=== PATIENT | male | born 1965 | race Hispanic/Latino ===

== ENCOUNTER → 2020-01-08 | Day surgery (SDC) | payer MEDICARE ==
[2020-01-03 16:46] LABS: BASOPHILS % 0.3 % (0.0-1.0); EOSINOPHILS # (AUTO) 0.1 (0.0-0.4); EOSINOPHILS % 1.7 % (0.0-6.0); HEMATOCRIT 38.1 % (38.2-49.6); LYMPHOCYTES # (AUTO) 1.4 (1.0-3.2); LYMPHOCYTES % 40.9 % (18.0-39.1); MEAN CORPUSCULAR HEMOGLOBIN 32.6 pg (28-32); MEAN CORPUSCULAR HGB CONC 34.1 g/dL (31-35); MEAN CORPUSCULAR VOLUME 95.5 fL (81-99); MONOCYTES # (AUTO) 0.3 (0.2-0.8); MONOCYTES % 9.3 % (4.4-11.3); NEUTROPHILS # (AUTO) 1.7 (2.1-6.9); NEUTROPHILS % 47.8 % (38.7-80.0); RED BLOOD COUNT 3.99 x10e6/uL (4.3-5.7); RED CELL DISTRIBUTION WIDTH 13.9 % (11.7-14.4)
[2020-01-03 16:49] LABS: PLATELET COUNT 63 x10e3/uL (140-360)
[2020-01-03 16:53] LABS: INR 1.23; PARTIAL THROMBOPLASTIN TIME 33.9 seconds (23.8-35.5); PROTHROMBIN TIME 16.3 seconds (11.9-14.5)
[2020-01-03 17:05] LABS: ALANINE AMINOTRANSFERASE 47 IU/L (0-55); ALBUMIN 3.3 g/dL (3.5-5.0); ALBUMIN/GLOBULIN RATIO 1.1 (0.8-2.0); ALKALINE PHOSPHATASE 106 IU/L (40-150); ANION GAP 13.6 mmol/L (8-16); BLOOD UREA NITROGEN 13 mg/dL (7-26); BUN/CREATININE RATIO 14 (6-25); CARBON DIOXIDE 22 mmol/L (22-29); CHLORIDE 109 mmol/L (98-107); CREATININE, SERUM 0.95 mg/dL (0.72-1.25); EST GLOMERULAR FILTRATION RATE > 60 ML/MIN (60-); GLUCOSE 151 mg/dL (74-118); POTASSIUM 3.6 mmol/L (3.5-5.1); SODIUM 141 mmol/L (136-145)
[~2020-01-08] MED LIST: AIDE PO; CALCIUM CARBON500 MG PO; CINNAMON500 MG PO; FENTANYL CITRATE/PF 100MCG/2 ML INJ ONE; FISH OIL 1,0001 EAC2 PO; LACTULOSE20 GM/30 M PO; LIDOCAINE HCL 2% LOCAL INJ 5 ML SDV VIAL INJ ONE; MIDAZOLAM HCL 2 MG/2 ML VIAL ONE; MILK THISTLE140 M1 PO; ONE DAILY MULT1 EAC1 PO; POTASSIUM CHLO10 ME1 PO; PROPOFOL IV EMULSION 10 MG/ML 20 ML VIAL ONE; PROPRANOLOL HCL10 MG PO; VITAMIN D400 UNIT PO; VITAMIN E400 UNIT PO
--- OUTSIDE RECORDS SUMMARY | 2020-01-08 09:37 | XMS REPORT ---
[facility] Address Unknown Phone Unavailable Care Team Providers Care [employer] Name Role Phone Unavailable Unavailable Payers Payer Name Policy Type Policy Number Effective Date Expiration Date Problems This patient has no known problems. Allergies, Adverse Reactions, Alerts Allergy Name Allergy Type Status Severity Reaction(s) Onset Date Inactive Date Treating Clinician Comments iodine DA Active SV 2019-03-25 00:00:00 iodine DA Active U 2013-10-18 00:00:00 Medications This patient has no known medications. Encounters Start Date/Time End Date/Time Encounter Type Admission Type Attending Clinicians Care Facility Care Department Encounter ID 2018-08-28 00:00:00 2018-08-28 00:00:[address] [facility] [id number] 2018-08-08 00:00:00 2018-08-08 00:00:[address] [facility] [id number] 2018-08-07 00:00:00 2018-08-07 00:00:[address] [facility] [id number] 2018-08-06 00:00:00 2018-08-06 00:00:[address] [facility] [id number] 2018-07-12 11:55:13 2018-07-12 11:55:[address] [facility] [id number] 2018-07-12 10:49:02 2018-07-12 10:49:[address] [facility] [id number] 2018-07-02 10:58:16 2018-07-02 10:58:[address] [facility] [id number] 2018-06-01 00:00:00 2018-06-01 00:00:[address] [facility] [id number] 2018-05-25 10:51:18 2018-05-25 10:51:[address] [facility] [id number] 2018-05-08 15:22:50 2018-05-08 15:22:[address] [facility] [id number] 2018-03-02 11:04:57 2018-03-02 11:04:[address] [facility] [id number] 2018-03-02 09:17:30 2018-03-02 09:17:[address] [facility] [id number] 2018-02-27 08:42:21 2018-02-27 08:42:[address] [facility] [id number] 2018-02-13 13:10:19 2018-02-13 13:10:[address] [facility] [id number] 2018-01-23 00:00:00 2018-01-23 00:00:[address] [facility] [id number] 2018-01-22 08:19:54 2018-01-22 08:19:[address] [facility] [id number] 2018-01-19 10:16:58 2018-01-19 10:16:[address] [facility] [id number] 2018-01-12 13:48:51 2018-01-12 13:48:[address] [facility] [id number] 2018-01-01 10:23:17 2018-01-01 10:23:[address] [facility] [id number] 2018-01-01 09:28:31 2018-01-01 09:28:[address] [facility] [id number] 2017-12-12 00:00:00 2017-12-12 00:00:[address] [facility] [id number] 2017-12-07 10:57:59 2017-12-07 10:57:[address] [facility] [id number] 2017-12-01 00:00:00 2017-12-01 00:00:[address] [facility] [id number] 2017-11-03 11:35:42 2017-11-03 11:35:[address] [facility] [id number] 2017-11-03 10:49:07 2017-11-03 10:49:[address] [facility] [id number] 2017-11-03 09:53:55 2017-11-03 09:53:[address] [facility] [id number] 2017-11-02 00:00:00 2017-11-02 00:00:[address] [facility] [id number] 2017-10-24 08:12:06 2017-10-24 08:12:[address] [facility] [id number] 2017-10-23 13:52:26 2017-10-23 13:52:[address] [facility] [id number] 2017-10-12 00:00:00 2017-10-12 00:00:[address] [facility] [id number] 2017-10-12 00:00:00 2017-10-12 00:00:[address] [facility] [id number] 2017-10-09 10:40:29 2017-10-09 10:40:[address] [facility] [id number] 2017-10-09 10:34:50 2017-10-09 10:34:[address] [facility] [id number] 2017-10-05 11:12:08 2017-10-05 11:12:08 Emergency [facility] [id number] 2017-10-05 08:32:46 2017-10-05 08:32:[address] [facility] [id number] 2017-10-05 08:32:36 2017-10-05 08:32:[address] [facility] [id number] 2017-10-04 10:04:54 2017-10-04 10:04:[address] [facility] [id number] 2017-10-04 08:02:58 2017-10-04 08:02:[address] [facility] [id number] 2017-10-01 00:00:00 2017-10-01 00:00:[address] [facility] [id number] 2017-09-27 22:04:01 2017-09-27 22:04:[address] [facility] [id number] 2017-09-27 20:53:33 2017-09-27 20:53:33 Emergency [facility] [id number] 2017-09-27 06:10:52 2017-09-27 06:10:[address] [facility] [id number] 2017-09-26 13:07:34 2017-09-26 13:07:[address] [facility] [id number] 2017-09-20 09:01:39 2017-09-20 09:01:39 Outpatient [facility] [id number] 2017-09-19 00:00:00 2017-09-19 00:00:[address] [facility] [id number] 2017-09-18 00:00:00 2017-09-18 00:00:[address] [facility] [id number] 2017-09-15 10:02:19 2017-09-15 10:02:[address] [facility] [id number] 2017-09-15 09:50:46 2017-09-15 09:50:[address] [facility] [id number] 2017-09-15 08:12:14 2017-09-15 08:12:[address] [facility] [id number] 2017-09-15 00:00:00 2017-09-15 00:00:[address] [facility] [id number] 2017-09-15 00:00:00 2017-09-15 00:00:[address] [facility] [id number] 2017-09-11 15:06:38 2017-09-11 15:06:38 Outpatient [facility] [id number] 2017-09-11 09:01:23 2017-09-11 09:01:[address] [facility] [id number] 2017-09-06 00:00:00 2017-09-06 00:00:[address] [facility] [id number] 2017-09-06 00:00:00 2017-09-06 00:00:[address] [facility] [id number] 2017-09-05 11:43:26 2017-09-05 11:43:26 Outpatient [facility] [id number] 2017-09-05 11:41:42 2017-09-05 11:41:42 Outpatient [facility] [id number] 2017-09-05 00:00:00 2017-09-05 00:00:[address] [facility] [id number] 2017-09-04 10:15:57 2017-09-04 10:15:57 Outpatient [facility] [id number] 2017-09-04 10:02:44 2017-09-04 10:02:44 Outpatient [facility] [id number] 2017-09-04 08:21:20 2017-09-04 08:21:20 Outpatient [facility] [id number] 2017-09-04 00:00:00 2017-09-04 00:00:00 Outpatient [facility] [id number] 2017-09-04 00:00:00 2017-09-04 00:00:00 Outpatient [facility] [id number] 2017-09-04 00:00:00 2017-09-04 00:00:00 Outpatient [facility] [id number] 2017-08-31 19:44:09 2017-08-31 19:44:09 Emergency [facility] [id number] 2017-08-25 00:00:00 2017-08-25 00:00:[address] [facility] [id number] 2017-08-22 00:00:00 2017-08-22 00:00:[address] [facility] [id number] 2017-08-04 10:20:16 2017-08-04 10:20:[address] [facility] [id number] 2017-08-04 10:04:06 2017-08-04 10:04:[address] [facility] [id number] 2017-08-01 10:39:41 2017-08-01 10:39:[address] [facility] [id number] 2017-08-01 00:00:00 2017-08-01 00:00:[address] [facility] [id number] 2017-07-27 00:00:00 2017-07-27 00:00:[address] [facility] [id number] 2017-07-19 08:42:40 2017-07-19 08:42:[address] [facility] [id number] 2017-07-18 13:01:27 2017-07-18 13:01:[address] [facility] [id number] 2017-07-14 08:58:50 2017-07-14 08:58:[address] [facility] [id number] 2017-07-14 08:34:30 2017-07-14 08:34:[address] [facility] [id number] 2017-07-11 00:00:00 2017-07-11 00:00:[address] [facility] [id number] 2017-07-04 09:29:53 2017-07-04 09:29:[address] [facility] [id number] 2017-07-03 15:06:53 2017-07-03 15:06:[address] [facility] [id number] 2017-06-19 11:24:33 2017-06-19 11:24:[address] [facility] [id number] 2017-06-19 10:32:06 2017-06-19 10:32:[address] [facility] [id number] 2017-06-14 09:08:30 2017-06-14 09:08:[address] [facility] [id number] 2017-06-05 09:32:25 2017-06-05 09:32:[address] [facility] [id number] 2017-05-22 15:05:47 2017-05-22 15:05:[address] [facility] [id number] 2017-05-16 09:40:38 2017-05-16 09:40:[address] [facility] [id number] 2017-05-09 00:00:00 2017-05-09 00:00:[address] [facility] [id number] 2017-05-08 00:00:00 2017-05-08 00:00:[address] [facility] [id number] 2017-04-18 16:20:04 2017-04-18 16:20:[address] [facility] [id number] 2017-04-18 14:23:09 2017-04-18 14:23:[address] [facility] [id number] 2017-04-12 00:00:00 2017-04-12 00:00:[address] [facility] [id number] 2017-04-11 09:15:39 2017-04-11 09:15:[address] [facility] [id number] 2017-03-29 21:54:28 2017-03-29 21:54:[address] [facility] [id number] 2017-02-20 14:41:20 2017-02-20 14:41:[address] [facility] [id number] 2016-09-08 10:29:34 2016-09-08 10:29:[address] [facility] [id number] Results Test Description Test Time Test Comments Text Results Atomic Results Result Comments CBC W/AUTO DIFF 2019-03-31 10:08:00 WHITE BLOOD CELL (test code=WBC) 3.6 K/mm3 4.5-12.5 RED BLOOD CELL (test code=RBC) 3.22 mill/mm3 4.0-5.8 HEMOGLOBIN (test code=HGB) 10.5 gram/dL 13.0-17.5 HEMATOCRIT (test code=HCT) 31.8 % 42.0-52.0 MEAN CELL VOLUME (test code=MCV) 98.8 fL 80-98 MEAN CELL HGB (test code=MCH) 32.6 picogram 27.0-33.0 MEAN CELL HGB CONCETRATION (test code=MCHC) 33.0 gram/dL 33.0-36.0 RED CELL DISTRIBUTION WIDTH (test code=RDW) 13.0 % 11.6-16.2 RED CELL DISTRIBUTION WIDTH SD (test code=RDW-SD) 47.0 fL 37.0-51.0 PLATELET COUNT (test code=PLT) 44 K/mm3 150-450 Results called to [id number] by LORAINE 03/31/19 0710Critical results verified and read back by Nurse? Y MEAN PLATELET VOLUME (test code=MPV) 11.7 fL 6.7-11.0 NEUTROPHIL % (test code=NT%) 51.2 % 39.0-69.0 IMMATURE GRANULOCYTE % (test code=IG%) 0.6 % 0.0-5.0 LYMPHOCYTE % (test code=LY%) 32.8 % 25.0-55.0 MONOCYTE % (test code=MO%) 13.2 % 0.0-10.0 EOSINOPHIL % (test code=EO%) 1.9 % 0.0-5.0 BASOPHIL % (test code=BA%) 0.3 % 0.0-1.0 NUCLEATED RBC % (test code=NRBC%) 0.0 % 0-0 NEUTROPHIL # (test code=NT#) 1.86 K/mm3 1.8-7.7 IMMATURE GRANULOCYTE # (test code=IG#) 0.02 x10 3/uL 0-0.03 LYMPHOCYTE # (test code=LY#) 1.19 K/mm3 1.0-5.0 MONOCYTE # (test code=MO#) 0.48 K/mm3 0-0.8 EOSINOPHIL # (test code=EO#) 0.07 K/mm3 0.0-0.5 BASOPHIL # (test code=BA#) 0.01 K/mm3 0.0-0.2 NUCLEATED RBC # (test code=NRBC#) 0.00 K/mm3 0.0-0.1 MANUAL DIFF REQUIRED (test code=MDIFF) NO, ONLY SCAN NEEDED DIFFERENTIAL [id number] 10:08:00* Test Item Value Reference Range Comments STAIN ACCEPTABILITY (test code=STN ACCEPTABLE) STAIN ACCEPTABLE POLYCHROMASIA (test code=POLC) 1+ POIKILOCYTOSIS (test code=POIK) 1+ ANISOCYTOSIS (test code=ANISO) 2+ MACROCYTOSIS (test code=MACR) 1+ SMUDGE CELLS (test code=SMUDG) 2+ PLATELET ESTIMATE (test code=PLTEST) DECREASED PLATELET MORPHOLOGY (test code=PLTMORPH) NORMAL CBC W/AUTO [id number] 07:11:00* Test Item Value Reference Range Comments WHITE BLOOD CELL (test code=WBC) 3.6 K/mm3 4.5-12.5 RED BLOOD CELL (test code=RBC) 3.22 mill/mm3 4.0-5.8 HEMOGLOBIN (test code=HGB) 10.5 gram/dL 13.0-17.5 HEMATOCRIT (test code=HCT) 31.8 % 42.0-52.0 MEAN CELL VOLUME (test code=MCV) 98.8 fL 80-98 MEAN CELL HGB (test code=MCH) 32.6 picogram 27.0-33.0 MEAN CELL HGB CONCETRATION (test code=MCHC) 33.0 gram/dL 33.0-36.0 RED CELL DISTRIBUTION WIDTH (test code=RDW) 13.0 % 11.6-16.2 RED CELL DISTRIBUTION WIDTH SD (test code=RDW-SD) 47.0 fL 37.0-51.0 PLATELET COUNT (test code=PLT) 44 K/mm3 150-450 Results called to [id number] by V.[email or web address] 03/31/19 0710Critical results verified and read back by Nurse? Y MEAN PLATELET VOLUME (test code=MPV) 11.7 fL 6.7-11.0 NEUTROPHIL % (test code=NT%) 51.2 % 39.0-69.0 IMMATURE GRANULOCYTE % (test code=IG%) 0.6 % 0.0-5.0 LYMPHOCYTE % (test code=LY%) 32.8 % 25.0-55.0 MONOCYTE % (test code=MO%) 13.2 % 0.0-10.0 EOSINOPHIL % (test code=EO%) 1.9 % 0.0-5.0 BASOPHIL % (test code=BA%) 0.3 % 0.0-1.0 NUCLEATED RBC % (test code=NRBC%) 0.0 % 0-0 NEUTROPHIL # (test code=NT#) 1.86 K/mm3 1.8-7.7 IMMATURE GRANULOCYTE # (test code=IG#) 0.02 x10 3/uL 0-0.03 LYMPHOCYTE # (test code=LY#) 1.19 K/mm3 1.0-5.0 MONOCYTE # (test code=MO#) 0.48 K/mm3 0-0.8 EOSINOPHIL # (test code=EO#) 0.07 K/mm3 0.0-0.5 BASOPHIL # (test code=BA#) 0.01 K/mm3 0.0-0.2 NUCLEATED RBC # (test code=NRBC#) 0.00 K/mm3 0.0-0.1 MANUAL DIFF REQUIRED (test code=MDIFF) NO, ONLY SCAN NEEDED DIFFERENTIAL [id number] 07:11:00* Test Item Value Reference Range Comments STAIN ACCEPTABILITY (test code=STN ACCEPTABLE) CABOT RINGS (test code=CAB) MORPHOLOGY COMMENT (test code=MOC) PLATELET ESTIMATE (test code=PLTEST) PLATELET MORPHOLOGY (test code=PLTMORPH) CBC W/AUTO [id number] 07:11:00* Test Item Value Reference Range Comments WHITE BLOOD CELL (test code=WBC) 3.6 K/mm3 4.5-12.5 RED BLOOD CELL (test code=RBC) 3.22 mill/mm3 4.0-5.8 HEMOGLOBIN (test code=HGB) 10.5 gram/dL 13.0-17.5 HEMATOCRIT (test code=HCT) 31.8 % 42.0-52.0 MEAN CELL VOLUME (test code=MCV) 98.8 fL 80-98 MEAN CELL HGB (test code=MCH) 32.6 picogram 27.0-33.0 MEAN CELL HGB CONCETRATION (test code=MCHC) 33.0 gram/dL 33.0-36.0 RED CELL DISTRIBUTION WIDTH (test code=RDW) 13.0 % 11.6-16.2 RED CELL DISTRIBUTION WIDTH SD (test code=RDW-SD) 47.0 fL 37.0-51.0 PLATELET COUNT (test code=PLT) 44 K/mm3 150-450 Results called to [id number] by LORAINE 03/31/19 0710Critical results verified and read back by Nurse? Y MEAN PLATELET VOLUME (test code=MPV) 11.7 fL 6.7-11.0 NEUTROPHIL % (test code=NT%) 51.2 % 39.0-69.0 IMMATURE GRANULOCYTE % (test code=IG%) 0.6 % 0.0-5.0 LYMPHOCYTE % (test code=LY%) 32.8 % 25.0-55.0 MONOCYTE % (test code=MO%) 13.2 % 0.0-10.0 EOSINOPHIL % (test code=EO%) 1.9 % 0.0-5.0 BASOPHIL % (test code=BA%) 0.3 % 0.0-1.0 NUCLEATED RBC % (test code=NRBC%) 0.0 % 0-0 NEUTROPHIL # (test code=NT#) 1.86 K/mm3 1.8-7.7 IMMATURE GRANULOCYTE # (test code=IG#) 0.02 x10 3/uL 0-0.03 LYMPHOCYTE # (test code=LY#) 1.19 K/mm3 1.0-5.0 MONOCYTE # (test code=MO#) 0.48 K/mm3 0-0.8 EOSINOPHIL # (test code=EO#) 0.07 K/mm3 0.0-0.5 BASOPHIL # (test code=BA#) 0.01 K/mm3 0.0-0.2 NUCLEATED RBC # (test code=NRBC#) 0.00 K/mm3 0.0-0.1 MANUAL DIFF REQUIRED (test code=MDIFF) NO, ONLY SCAN NEEDED DIFFERENTIAL [id number] 07:11:00* Test Item Value Reference Range Comments STAIN ACCEPTABILITY (test code=STN ACCEPTABLE) CABOT RINGS (test code=CAB) MORPHOLOGY COMMENT (test code=MOC) PLATELET ESTIMATE (test code=PLTEST) PLATELET MORPHOLOGY (test code=PLTMORPH) CBC W/AUTO [id number] 07:11:00* Test Item Value Reference Range Comments WHITE BLOOD CELL (test code=WBC) 3.6 K/mm3 4.5-12.5 RED BLOOD CELL (test code=RBC) 3.22 mill/mm3 4.0-5.8 HEMOGLOBIN (test code=HGB) 10.5 gram/dL 13.0-17.5 HEMATOCRIT (test code=HCT) 31.8 % 42.0-52.0 MEAN CELL VOLUME (test code=MCV) 98.8 fL 80-98 MEAN CELL HGB (test code=MCH) 32.6 picogram 27.0-33.0 MEAN CELL HGB CONCETRATION (test code=MCHC) 33.0 gram/dL 33.0-36.0 RED CELL DISTRIBUTION WIDTH (test code=RDW) 13.0 % 11.6-16.2 RED CELL DISTRIBUTION WIDTH SD (test code=RDW-SD) 47.0 fL 37.0-51.0 PLATELET COUNT (test code=PLT) 44 K/mm3 150-450 Results called to [id number] by V.[email or web address] 03/31/19 0710Critical results verified and read back by Nurse? Y MEAN PLATELET VOLUME (test code=MPV) 11.7 fL 6.7-11.0 NEUTROPHIL % (test code=NT%) 51.2 % 39.0-69.0 IMMATURE GRANULOCYTE % (test code=IG%) 0.6 % 0.0-5.0 LYMPHOCYTE % (test code=LY%) 32.8 % 25.0-55.0 MONOCYTE % (test code=MO%) 13.2 % 0.0-10.0 EOSINOPHIL % (test code=EO%) 1.9 % 0.0-5.0 BASOPHIL % (test code=BA%) 0.3 % 0.0-1.0 NUCLEATED RBC % (test code=NRBC%) 0.0 % 0-0 NEUTROPHIL # (test code=NT#) 1.86 K/mm3 1.8-7.7 IMMATURE GRANULOCYTE # (test code=IG#) 0.02 x10 3/uL 0-0.03 LYMPHOCYTE # (test code=LY#) 1.19 K/mm3 1.0-5.0 MONOCYTE # (test code=MO#) 0.48 K/mm3 0-0.8 EOSINOPHIL # (test code=EO#) 0.07 K/mm3 0.0-0.5 BASOPHIL # (test code=BA#) 0.01 K/mm3 0.0-0.2 NUCLEATED RBC # (test code=NRBC#) 0.00 K/mm3 0.0-0.1 MANUAL DIFF REQUIRED (test code=MDIFF) NO, ONLY SCAN NEEDED DIFFERENTIAL [id number] 07:11:00* Test Item Value Reference Range Comments STAIN ACCEPTABILITY (test code=STN ACCEPTABLE) MORPHOLOGY COMMENT (test code=MOC) PLATELET ESTIMATE (test code=PLTEST) PLATELET MORPHOLOGY (test code=PLTMORPH) CBC W/AUTO [id number] 07:11:00* Test Item Value Reference Range Comments WHITE BLOOD CELL (test code=WBC) 3.6 K/mm3 4.5-12.5 RED BLOOD CELL (test code=RBC) 3.22 mill/mm3 4.0-5.8 HEMOGLOBIN (test code=HGB) 10.5 gram/dL 13.0-17.5 HEMATOCRIT (test code=HCT) 31.8 % 42.0-52.0 MEAN CELL VOLUME (test code=MCV) 98.8 fL 80-98 MEAN CELL HGB (test code=MCH) 32.6 picogram 27.0-33.0 MEAN CELL HGB CONCETRATION (test code=MCHC) 33.0 gram/dL 33.0-36.0 RED CELL DISTRIBUTION WIDTH (test code=RDW) 13.0 % 11.6-16.2 RED CELL DISTRIBUTION WIDTH SD (test code=RDW-SD) 47.0 fL 37.0-51.0 PLATELET COUNT (test code=PLT) 44 K/mm3 150-450 Results called to [id number] by LORAINE 03/31/19 0710Critical results verified and read back by Nurse? Y MEAN PLATELET VOLUME (test code=MPV) 11.7 fL 6.7-11.0 NEUTROPHIL % (test code=NT%) 51.2 % 39.0-69.0 IMMATURE GRANULOCYTE % (test code=IG%) 0.6 % 0.0-5.0 LYMPHOCYTE % (test code=LY%) 32.8 % 25.0-55.0 MONOCYTE % (test code=MO%) 13.2 % 0.0-10.0 EOSINOPHIL % (test code=EO%) 1.9 % 0.0-5.0 BASOPHIL % (test code=BA%) 0.3 % 0.0-1.0 NUCLEATED RBC % (test code=NRBC%) 0.0 % 0-0 NEUTROPHIL # (test code=NT#) 1.86 K/mm3 1.8-7.7 IMMATURE GRANULOCYTE # (test code=IG#) 0.02 x10 3/uL 0-0.03 LYMPHOCYTE # (test code=LY#) 1.19 K/mm3 1.0-5.0 MONOCYTE # (test code=MO#) 0.48 K/mm3 0-0.8 EOSINOPHIL # (test code=EO#) 0.07 K/mm3 0.0-0.5 BASOPHIL # (test code=BA#) 0.01 K/mm3 0.0-0.2 NUCLEATED RBC # (test code=NRBC#) 0.00 K/mm3 0.0-0.1 MANUAL DIFF REQUIRED (test code=MDIFF) NO, ONLY SCAN NEEDED DIFFERENTIAL [id number] 07:11:00* Test Item Value Reference Range Comments STAIN ACCEPTABILITY (test code=STN ACCEPTABLE) CABOT RINGS (test code=CAB) MORPHOLOGY COMMENT (test code=MOC) PLATELET ESTIMATE (test code=PLTEST) PLATELET MORPHOLOGY (test code=PLTMORPH) BASIC METABOLIC [id number] 06:59:00* Test Item Value Reference Range Comments SODIUM (test code=NA) 140 mmol/L 136-145 POTASSIUM (test code=K) 3.5 mmol/L 3.5-5.1 CHLORIDE (test code=CL) 110.0 mmol/L 98-107 CARBON DIOXIDE (test code=CO2) 22.0 mmol/L 21-32 ANION GAP (test code=GAP) 11.5 10-20 GLUCOSE (test code=GLU) 96 mg/dL 74-106 BLOOD UREA NITROGEN (test code=BUN) 13 mg/dL 7-18 GLOMERULAR FILTRATION RATE (test code=GFR) > 60 mL/min >=60 Estimated GFR by using Modified MDRD formula.Chronic kidney disease is defined as either kidney damageor GFR <60 mL/min/1.73 m2 for >3 months. CREATININE (test code=CREAT) 0.70 mg/dL 0.7-1.3 BUN/CREATININE RATIO (test code=BUN/CREA) 18.6 10-20 CALCIUM (test code=CA) 7.9 mg/dL 8.5-10.1 BASIC METABOLIC [id number] 06:53:00* Test Item Value Reference Range Comments SODIUM (test code=NA) 140 mmol/L 136-145 POTASSIUM (test code=K) 3.5 mmol/L 3.5-5.1 CHLORIDE (test code=CL) 110.0 mmol/L 98-107 CARBON DIOXIDE (test code=CO2) mmol/L 21-32 ANION GAP (test code=GAP) 10-20 GLUCOSE (test code=GLU) mg/dL 74-106 BLOOD UREA NITROGEN (test code=BUN) mg/dL 7-18 GLOMERULAR FILTRATION RATE (test code=GFR) mL/min >=60 CREATININE (test code=CREAT) mg/dL 0.7-1.3 BUN/CREATININE RATIO (test code=BUN/CREA) 10-20 CALCIUM (test code=CA) mg/dL 8.5-10.1 - XR CHEST 1 [id number] 10:32:00 FAX: Carol Estes MD [phone] [place]: St: ADM FAX: George Avila MD [phone] FAX: Aristides Ingram III [phone] Name: CAROL OLMEDO [facility] : 1965 Age/S: 53/M [address] [facility] Unit #: [id number] Loc: V.S06 [place] [address] Phys: George Schultz MD Acct: [id number] Dis Date: Status: ADM IN ONE #: [phone] Exam Date: 03/30/2019 044 FAX #: [phone] Reason: screening, anemia EXAMS: CPT CODE: [id number] XR CHEST 1 V [id number] EXAM: Chest x- ray, one view; INFORMATION: Anemia; respiratory distress; IMPRESSION: 1. Interim extubation. 2. Improvement compared with recent study from March 28, 2019: Both lungs are better aerat ed with almost complete resolution of previously seen infiltrative dewey es. 3. The heart size is within normal limits. at 1032 Reported and signed by: Ricky Anaya M.D. CC: Carol Tijerina MD; George Self MD; Aristides Preciado III, MD Technologist: CAS MITTAL, RT(R); Michela Roger Trnscrd Date/Time/By: 03/30/2019 (1032) : By: SterlingGR W Orig Print D/T: S: 03/30/2019 (2303) PAGE 1 Signed Report COMPREHENSIVE METABOLIC [id number] 07:34:00* Test Item Value Reference Range Comments SODIUM (test code=NA) 142 mmol/L 136-145 POTASSIUM (test code=K) 3.6 mmol/L 3.5-5.1 CHLORIDE (test code=CL) 111.0 mmol/L 98-107 CARBON DIOXIDE (test code=CO2) 24.0 mmol/L 21-32 ANION GAP (test code=GAP) 10.6 10-20 GLUCOSE (test code=GLU) 86 mg/dL 74-106 BLOOD UREA NITROGEN (test code=BUN) 17 mg/dL 7-18 GLOMERULAR FILTRATION RATE (test code=GFR) > 60 mL/min >=60 Estimated GFR by using Modified MDRD formula.Chronic kidney disease is defined as either kidney damageor GFR <60 mL/min/1.73 m2 for >3 months. CREATININE (test code=CREAT) 0.60 mg/dL 0.7-1.3 BUN/CREATININE RATIO (test code=BUN/CREA) 28.3 10-20 TOTAL PROTEIN (test code=PROT) 5.2 gram/dL 6.4-8.2 ALBUMIN (test code=ALB) 2.6 g/dL 3.4-5.0 GLOBULIN (test code=GLOB) 2.6 gram/dL 2.7-4.2 ALBUMIN/GLOBULIN RATIO (test code=A/G) 1.0 0.75-1.50 CALCIUM (test code=CA) 8.2 mg/dL 8.5-10.1 BILIRUBIN TOTAL (test code=BILT) 2.10 mg/dL 0.0-1.0 SGOT/AST (test code=AST) 47 IUnit/L 15-37 SGPT/ALT (test code=ALT) 37 IUnit/L 12-78 ALKALINE PHOSPHATASE TOTAL (test code=ALKP) 55 IUnit/L 45-117 Note change in reference range due to change in reagent. [id number] 07:34:00* Test Item Value Reference Range Comments MAGNESIUM (test code=MAG) 2.0 mg/dL 1.8-2.4 CBC W/O [id number] 07:23:00* Test Item Value Reference Range Comments WHITE BLOOD CELL (test code=WBC) 3.5 K/mm3 4.5-12.5 RED BLOOD CELL (test code=RBC) 3.07 mill/mm3 4.0-5.8 HEMOGLOBIN (test code=HGB) 10.6 gram/dL 13.0-17.5 HEMATOCRIT (test code=HCT) 30.5 % 42.0-52.0 MEAN CELL VOLUME (test code=MCV) 99.3 fL 80-98 MEAN CELL HGB (test code=MCH) 34.5 picogram 27.0-33.0 MEAN CELL HGB CONCETRATION (test code=MCHC) 34.8 gram/dL 33.0-36.0 RED CELL DISTRIBUTION WIDTH (test code=RDW) 13.3 % 11.6-16.2 PLATELET COUNT (test code=PLT) 34 K/mm3 150-450 Results called to [id number] by V.JOSE D 03/30/19 0723Critical results verified and read back by Nurse? Y MEAN PLATELET VOLUME (test code=MPV) 11.4 fL 6.7-11.0 COMPREHENSIVE METABOLIC [id number] 07:22:00* Test Item Value Reference Range Comments SODIUM (test code=NA) 142 mmol/L 136-145 POTASSIUM (test code=K) 3.6 mmol/L 3.5-5.1 CHLORIDE (test code=CL) 111.0 mmol/L 98-107 CARBON DIOXIDE (test code=CO2) mmol/L 21-32 ANION GAP (test code=GAP) 10-20 GLUCOSE (test code=GLU) mg/dL 74-106 BLOOD UREA NITROGEN (test code=BUN) mg/dL 7-18 GLOMERULAR FILTRATION RATE (test code=GFR) mL/min >=60 CREATININE (test code=CREAT) mg/dL 0.7-1.3 BUN/CREATININE RATIO (test code=BUN/CREA) 10-20 TOTAL PROTEIN (test code=PROT) gram/dL 6.4-8.2 ALBUMIN (test code=ALB) g/dL 3.4-5.0 GLOBULIN (test code=GLOB) gram/dL 2.7-4.2 ALBUMIN/GLOBULIN RATIO (test code=A/G) 0.75-1.50 CALCIUM (test code=CA) mg/dL 8.5-10.1 BILIRUBIN TOTAL (test code=BILT) mg/dL 0.0-1.0 SGOT/AST (test code=AST) IUnit/L 15-37 SGPT/ALT (test code=ALT) IUnit/L 12-78 ALKALINE PHOSPHATASE TOTAL (test code=ALKP) IUnit/L 45-117 [id number] 07:22:00* Test Item Value Reference Range Comments MAGNESIUM (test code=MAG) mg/dL 1.8-2.4 COMPREHENSIVE METABOLIC [id number] 05:51:00* Test Item Value Reference Range Comments SODIUM (test code=NA) 144 mmol/L 136-145 POTASSIUM (test code=K) 3.7 mmol/L 3.5-5.1 CHLORIDE (test code=CL) 113.0 mmol/L 98-107 CARBON DIOXIDE (test code=CO2) 25.0 mmol/L 21-32 ANION GAP (test code=GAP) 9.7 10-20 GLUCOSE (test code=GLU) 97 mg/dL 74-106 BLOOD UREA NITROGEN (test code=BUN) 18 mg/dL 7-18 GLOMERULAR FILTRATION RATE (test code=GFR) > 60 mL/min >=60 Estimated GFR by using Modified MDRD formula.Chronic kidney disease is defined as either kidney damageor GFR <60 mL/min/1.73 m2 for >3 months. CREATININE (test code=CREAT) 0.70 mg/dL 0.7-1.3 BUN/CREATININE RATIO (test code=BUN/CREA) 25.7 10-20 TOTAL PROTEIN (test code=PROT) 5.2 gram/dL 6.4-8.2 ALBUMIN (test code=ALB) 2.6 g/dL 3.4-5.0 GLOBULIN (test code=GLOB) 2.6 gram/dL 2.7-4.2 ALBUMIN/GLOBULIN RATIO (test code=A/G) 1.0 0.75-1.50 CALCIUM (test code=CA) 7.9 mg/dL 8.5-10.1 BILIRUBIN TOTAL (test code=BILT) 1.70 mg/dL 0.0-1.0 SGOT/AST (test code=AST) 52 IUnit/L 15-37 SGPT/ALT (test code=ALT) 34 IUnit/L 12-78 ALKALINE PHOSPHATASE TOTAL (test code=ALKP) 55 IUnit/L 45-117 Note change in reference range due to change in reagent. COMPREHENSIVE METABOLIC [id number] 05:41:00* Test Item Value Reference Range Comments SODIUM (test code=NA) 144 mmol/L 136-145 POTASSIUM (test code=K) 3.7 mmol/L 3.5-5.1 CHLORIDE (test code=CL) 113.0 mmol/L 98-107 CARBON DIOXIDE (test code=CO2) mmol/L 21-32 ANION GAP (test code=GAP) 10-20 GLUCOSE (test code=GLU) mg/dL 74-106 BLOOD UREA NITROGEN (test code=BUN) mg/dL 7-18 GLOMERULAR FILTRATION RATE (test code=GFR) mL/min >=60 CREATININE (test code=CREAT) mg/dL 0.7-1.3 BUN/CREATININE RATIO (test code=BUN/CREA) 10-20 TOTAL PROTEIN (test code=PROT) gram/dL 6.4-8.2 ALBUMIN (test code=ALB) g/dL 3.4-5.0 GLOBULIN (test code=GLOB) gram/dL 2.7-4.2 ALBUMIN/GLOBULIN RATIO (test code=A/G) 0.75-1.50 CALCIUM (test code=CA) mg/dL 8.5-10.1 BILIRUBIN TOTAL (test code=BILT) mg/dL 0.0-1.0 SGOT/AST (test code=AST) IUnit/L 15-37 SGPT/ALT (test code=ALT) IUnit/L 12-78 ALKALINE PHOSPHATASE TOTAL (test code=ALKP) IUnit/L 45-117 [id number] 05:41:00* Test Item Value Reference Range Comments AMMONIA (test code=AMM) 80 umol/L 11-32 CBC W/AUTO [id number] 05:04:00* Test Item Value Reference Range Comments WHITE BLOOD CELL (test code=WBC) 5.4 K/mm3 4.5-12.5 RED BLOOD CELL (test code=RBC) 3.06 mill/mm3 4.0-5.8 HEMOGLOBIN (test code=HGB) 10.2 gram/dL 13.0-17.5 HEMATOCRIT (test code=HCT) 30.7 % 42.0-52.0 MEAN CELL VOLUME (test code=MCV) 100.3 fL 80-98 MEAN CELL HGB (test code=MCH) 33.3 picogram 27.0-33.0 MEAN CELL HGB CONCETRATION (test code=MCHC) 33.2 gram/dL 33.0-36.0 RED CELL DISTRIBUTION WIDTH (test code=RDW) 13.5 % 11.6-16.2 RED CELL DISTRIBUTION WIDTH SD (test code=RDW-SD) 50.3 fL 37.0-51.0 PLATELET COUNT (test code=PLT) 41 K/mm3 150-450 Results called to [place] [address] by MARIEJP1 03/29/19 0502Critical results verified and read back by Nurse? Y MEAN PLATELET VOLUME (test code=MPV) 10.7 fL 6.7-11.0 NEUTROPHIL % (test code=NT%) 57.4 % 39.0-69.0 IMMATURE GRANULOCYTE % (test code=IG%) 0.2 % 0.0-5.0 LYMPHOCYTE % (test code=LY%) 28.8 % 25.0-55.0 MONOCYTE % (test code=MO%) 13.2 % 0.0-10.0 EOSINOPHIL % (test code=EO%) 0.2 % 0.0-5.0 BASOPHIL % (test code=BA%) 0.2 % 0.0-1.0 NUCLEATED RBC % (test code=NRBC%) 0.0 % 0-0 NEUTROPHIL # (test code=NT#) 3.10 K/mm3 1.8-7.7 IMMATURE GRANULOCYTE # (test code=IG#) 0.01 x10 3/uL 0-0.03 LYMPHOCYTE # (test code=LY#) 1.55 K/mm3 1.0-5.0 MONOCYTE # (test code=MO#) 0.71 K/mm3 0-0.8 EOSINOPHIL # (test code=EO#) 0.01 K/mm3 0.0-0.5 BASOPHIL # (test code=BA#) 0.01 K/mm3 0.0-0.2 NUCLEATED RBC # (test code=NRBC#) 0.00 K/mm3 0.0-0.1 COMPREHENSIVE METABOLIC [id number] 07:24:00* Test Item Value Reference Range Comments SODIUM (test code=NA) 143 mmol/L 136-145 POTASSIUM (test code=K) 3.9 mmol/L 3.5-5.1 CHLORIDE (test code=CL) 113.0 mmol/L 98-107 CARBON DIOXIDE (test code=CO2) 22.0 mmol/L 21-32 ANION GAP (test code=GAP) 11.9 10-20 GLUCOSE (test code=GLU) 126 mg/dL 74-106 BLOOD UREA NITROGEN (test code=BUN) 18 mg/dL 7-18 GLOMERULAR FILTRATION RATE (test code=GFR) > 60 mL/min >=60 Estimated GFR by using Modified MDRD formula.Chronic kidney disease is defined as either kidney damageor GFR <60 mL/min/1.73 m2 for >3 months. CREATININE (test code=CREAT) 0.90 mg/dL 0.7-1.3 BUN/CREATININE RATIO (test code=BUN/CREA) 20.0 10-20 TOTAL PROTEIN (test code=PROT) 5.6 gram/dL 6.4-8.2 ALBUMIN (test code=ALB) 2.7 g/dL 3.4-5.0 GLOBULIN (test code=GLOB) 2.9 gram/dL 2.7-4.2 ALBUMIN/GLOBULIN RATIO (test code=A/G) 0.9 0.75-1.50 CALCIUM (test code=CA) 7.8 mg/dL 8.5-10.1 BILIRUBIN TOTAL (test code=BILT) 1.20 mg/dL 0.0-1.0 SGOT/AST (test code=AST) 33 IUnit/L 15-37 SGPT/ALT (test code=ALT) 36 IUnit/L 12-78 ALKALINE PHOSPHATASE TOTAL (test code=ALKP) 68 IUnit/L 45-117 Note change in reference range due to change in reagent. LIPID PROFILE (CORONARY RISK)2019-03-28 07:24:00* Test Item Value Reference Range Comments TRIGLYCERIDES (test code=TRIG) 58 mg/dL 20-150 CHOLESTEROL (test code=CHOL) 118 mg/dL 0-200 CHOLESTEROL/HDL RATIO (test code=CHOLHDL) 2.0 RATIO 0-4.9 RISK ASSOCIATED WITH CHOL/HDL RATIOS: Risk Male Female1/2 AVERAGE 3.43 3.27AVERAGE 4.97 4.442X AVERAGE 9.55 7.053X AVERAGE 23.39 11.04 REFERENCE VALUE IS RELATED TO RISK LEVELS ASRECOMMENDED BY THE [facility]. HEART, LUNG, AND BLOOD INST. HDL CHOLESTEROL (test code=HDL) 59 mg/dL 40-60 LIPOPROTEIN LDL (test code=LDL) 62 mg/dL 100-129 Reference Interval: mg/dL mmol/L Optimal <100 <2.6Near/above optimal 100-129 2.6- 3.3Borderline High 130-159 3.4-4.1High 160-189 4.1-4.9Very High >=190 >=4.9=========This LDL result is a direct measurement.========= THYROID STIMULATING [id number] 07:24:00* Test Item Value Reference Range Comments THYROID STIMULATING HORMONE (test code=TSH) 0.362 uIU/mL 0.36-3.74 TSH REFERENCE RANGES: EUTHYROID: 0.35 - 4.3 mIU/mL HYPO : > 5.5 mIU/mL HYPER : < 0.35 mIU/mL [id number] 07:24:00* Test Item Value Reference Range Comments TROPONIN-I (test code=TROPI) 2.470 ng/mL 0-0.045 Results called to IFEOMA [id number] LARA 03/28/19 0724Critical results verified and read back by Nurse? Y B-TYPE NATRIURETIC [id number] 07:15:00* Test Item Value Reference Range Comments B-TYPE NATRIURETIC PEPTIDE (test code=BNP) 162.23 pgram/mL 0-100 COMPREHENSIVE METABOLIC [id number] 06:54:00* Test Item Value Reference Range Comments SODIUM (test code=NA) 143 mmol/L 136-145 POTASSIUM (test code=K) 3.9 mmol/L 3.5-5.1 CHLORIDE (test code=CL) 113.0 mmol/L 98-107 CARBON DIOXIDE (test code=CO2) mmol/L 21-32 ANION GAP (test code=GAP) 10-20 GLUCOSE (test code=GLU) mg/dL 74-106 BLOOD UREA NITROGEN (test code=BUN) mg/dL 7-18 GLOMERULAR FILTRATION RATE (test code=GFR) mL/min >=60 CREATININE (test code=CREAT) mg/dL 0.7-1.3 BUN/CREATININE RATIO (test code=BUN/CREA) 10-20 TOTAL PROTEIN (test code=PROT) gram/dL 6.4-8.2 ALBUMIN (test code=ALB) g/dL 3.4-5.0 GLOBULIN (test code=GLOB) gram/dL 2.7-4.2 ALBUMIN/GLOBULIN RATIO (test code=A/G) 0.75-1.50 CALCIUM (test code=CA) mg/dL 8.5-10.1 BILIRUBIN TOTAL (test code=BILT) mg/dL 0.0-1.0 SGOT/AST (test code=AST) IUnit/L 15-37 SGPT/ALT (test code=ALT) IUnit/L 12-78 ALKALINE PHOSPHATASE TOTAL (test code=ALKP) IUnit/L 45-117 LIPID PROFILE (CORONARY RISK)2019-03-28 06:54:00* Test Item Value Reference Range Comments TRIGLYCERIDES (test code=TRIG) mg/dL 20-150 CHOLESTEROL (test code=CHOL) mg/dL 0-200 CHOLESTEROL/HDL RATIO (test code=CHOLHDL) RATIO 0-4.9 HDL CHOLESTEROL (test code=HDL) mg/dL 40-60 LIPOPROTEIN LDL (test code=LDL) mg/dL 100-129 THYROID STIMULATING [id number] 06:54:00* Test Item Value Reference Range Comments THYROID STIMULATING HORMONE (test code=TSH) uIU/mL 0.36-3.74 [id number] 06:54:00* Test Item Value Reference Range Comments TROPONIN-I (test code=TROPI) ng/mL 0-0.045 CBC W/AUTO [id number] 06:35:00* Test Item Value Reference Range Comments WHITE BLOOD CELL (test code=WBC) 7.1 K/mm3 4.5-12.5 RED BLOOD CELL (test code=RBC) 3.58 mill/mm3 4.0-5.8 HEMOGLOBIN (test code=HGB) 11.8 gram/dL 13.0-17.5 HEMATOCRIT (test code=HCT) 36.2 % 42.0-52.0 MEAN CELL VOLUME (test code=MCV) 101.1 fL 80-98 RESULT VERIFIED BY REPEAT ANALYSIS MEAN CELL HGB (test code=MCH) 33.0 picogram 27.0-33.0 MEAN CELL HGB CONCETRATION (test code=MCHC) 32.6 gram/dL 33.0-36.0 RED CELL DISTRIBUTION WIDTH (test code=RDW) 13.8 % 11.6-16.2 RED CELL DISTRIBUTION WIDTH SD (test code=RDW-SD) 51.4 fL 37.0-51.0 PLATELET COUNT (test code=PLT) 58 K/mm3 150-450 MEAN PLATELET VOLUME (test code=MPV) 11.6 fL 6.7-11.0 NEUTROPHIL % (test code=NT%) 77.2 % 39.0-69.0 IMMATURE GRANULOCYTE % (test code=IG%) 0.4 % 0.0-5.0 LYMPHOCYTE % (test code=LY%) 13.6 % 25.0-55.0 MONOCYTE % (test code=MO%) 8.8 % 0.0-10.0 EOSINOPHIL % (test code=EO%) 0.0 % 0.0-5.0 BASOPHIL % (test code=BA%) 0.0 % 0.0-1.0 NUCLEATED RBC % (test code=NRBC%) 0.0 % 0-0 NEUTROPHIL # (test code=NT#) 5.50 K/mm3 1.8-7.7 IMMATURE GRANULOCYTE # (test code=IG#) 0.03 x10 3/uL 0-0.03 LYMPHOCYTE # (test code=LY#) 0.97 K/mm3 1.0-5.0 MONOCYTE # (test code=MO#) 0.63 K/mm3 0-0.8 EOSINOPHIL # (test code=EO#) 0.00 K/mm3 0.0-0.5 BASOPHIL # (test code=BA#) 0.00 K/mm3 0.0-0.2 NUCLEATED RBC # (test code=NRBC#) 0.00 K/mm3 0.0-0.1 - XR CHEST 1 [id number] 06:14:00 FAX: Carol Estes MD [phone] [place]: St: ADM FAX: George Avila MD [phone] FAX: Aristides Ingram III [phone] Name: CAROL OLMEDO [facility] : 1965 Age/S: 53/M [address] [facility] Unit #: [id number] Loc: V.[address] [address] Phys: George Schultz MD Acct: [id number] Dis Date: Status: ADM IN [facility] #: [phone] Exam Date: 03/28/2019 05 FAX #: [phone] Reason: ET tube EXAMS: CPT CODE: [id number] XR CHEST 1 V 71021 CLINICAL HISTO RY: ET tube TECHNIQUE: AP chest x-ray COMPARISON: Pr evious day. IMPRESSION: ET tube positioned 7 c m above the rafael. Increased right perihilar consolidation. No pleural effusion. Normal heart size. Mediastinal silhouette is unremarkable. Rig ht central venous catheter. at 0614 Reported and signed by: Coreen Fisher D.O. CC: Carol Tijerina MD; George Schultz MD ; Aristides Preciado III, MD Technologist: DAVID TEAGUE JR; Leyda Baker Trnscrd Date/Time/By: 03/28/2019 (0614) : By: [email or web address] Orig Print D/T: S: 03/28/2019 (0617) PAGE 1 Signed Report [id number] 23:49:00* Test Item Value Reference Range Comments GLUBED (test code=GLUBED) 144 mg/dL 74-106 Performed by certified metal cnc operator at [facility] (Former[facility]) ARTERIAL BLOOD [id number] 21:13:00* Test Item Value Reference Range Comments ARTERIAL BLOOD GAS PH (test code=PHA) 7.38 7.35-7.45 ARTERIAL BLOOD GAS PCO2 (test code=PCO2A) 32.7 mm Hg 35-45 ARTERIAL BLOOD GAS PO2 (test code=PO2A) 107.3 mmHg 80-100 BICARBONATE TOTAL HCO3 (test code=HCO3) 18.8 mmol/L 23.0-27.0 BASE EXCESS (test code=BLAKE) -5.3 mmol/L -3.0-5.0 Results called to and read back by [facility] :03/27/2019; by GREGG ABG O2 SATURATION (test code=SATA) 97.3 % 90.0-98.0 ABG TYPE (test code=TYPEA) Arterial FIO2 (test code=FIO2A) 40.0 ABG VENT MODE (test code=MODEA) VC+ ABG VENT RESP RATE (test code=RRA) 24.0 per min ABG TIDAL VOLUME (test code=TVA) 450.0 mL ABG PEEP (test code=PEEPA) 5.0 cmH2O ABG SITE (test code=SITEA) Rt RADIAL ARTERY MODIFIED ALLENS (test code=MODALL) Yes CHECK PERFORMED HEMATOCRIT (test code=HCT/ABG) 39 % 42-52 TOTAL HGB (test code=THB) 13.4 gram/dL 13.0-17.5 HGB O2 SAT (test code=HBOSAT) 96.7 % 94.00-98.00 CARBOXYHEMOGLOBIN (test code=HOHGBT) 0.3 %totalHg 0.5-1.5 Results called to and read back by [facility] :03/27/2019; by GREGG METHEMOGLOBIN (test code=METHGB) 0.3 % 0.0-1.50 O2 CONTENT (test code=O2CT) 18.3 % vol 18.0-22.0 PROTHROMBIN [id number] 18:57:00* Test Item Value Reference Range Comments PROTHROMBIN TIME PATIENT (test code=PTP) 14.2 seconds 9.0-14.0 INTERNATIONAL NORMAL RATIO (test code=INR) 1.2 0.8-1.2 The therapeutic range for oral anticoagulant therapy formost indications is an international normalized ratio (INR)of between 2.0 and 3.0. The recommended therapeutic INRrange for various clinical situations is listed below: Clinical Situation INR range Pulmonary e mbolism treatment (2.0-3.0)Venous thrombosis treatmentVenous thrombosis prophylaxis (high risk surgery)Prevention of systemic embolism from: Acute myocardial infarction Valvular heart disease Atrial fibrillation Mechanical prosthetic heart valves (2.5-3.5) IS PATIENT ON ANTICOAGULANTS? NSPECIMEN COMMENTS: PLEASE ADD TO BLOOD ALREADY SE [id number] 18:37:00* Test Item Value Reference Range Comments GLUBED (test code=GLUBED) 111 mg/dL 74-106 Performed by certified metal cnc operator at [facility] ([facility]) - CT ABD PELVIS W/O [id number] 18:27:00 Name: CAROL OLMEDO [facility] : 1965 Age/S: 53 / M [address] Unit #: [id number] Loc: [place] [address] Phys: Carol Tijerina MD Acct: [id number] Dis Date: Status: ADM IN PHONE #: [phone] Exam Date: 03/27/2019 9228 FAX #: [phone] Reason: POSSIBLE EMBOLIZATION EXAMS: CPT CODE: [id number] CT ABD PELVIS W/O CONT 40802 REASON FOR EXAM: POSSIBLE EMBOLIZATION EXAM ORDER DATE: 03/27/2019 6:05 PM Ordering M.Fabio.: Carol Tijerina MD PROCEDURE: - CT ABD PELVIS W/O CONT COMPARISON: FINDINGS: CT images of the abdomen and pelvis were obtained without IV and without oral contrast at 5mm. Dose modulation, iterative reconstruction, and/or weight based adjustment of the MA/KV was utilized to reduce the radiation dose to as low as reasonably achievable. The spleen and pancreas are grossly within normal limits. Radiopaque stones seen in the gallbladder The kidneys are within normal limits. The urinary bladder is unremarkable. The colon, small bowel, and stomach are within normal limits without evidence of obstruction. The appendix is unremarkable No e vidence of free air or free fluid. The uterus is unremarkable. 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 CO2 present within the pe ritoneal cavity and within the right inguinal region. at 1827 Reported a nd signed by: Macario Cox M.D. CC: Carol Tijerina MD; Aristides Preciado III, MD Technologist:Amy MAO(R); JAYRO Ta CTDI: DLP: Trnscb Date/Time: 03/27/2019 (1826) JosiahR.VTL Orig P rint D/T: S: 03/27/2019 (183) CTDI: DLP: PAGE 1 Signed Report CBC W/AUTO DIFF 2019-03-27 18:25:00* Test Item Value Reference Range Comments WHITE BLOOD CELL (test code=WBC) 9.8 K/mm3 4.5-12.5 RED BLOOD CELL (test code=RBC) 4.02 mill/mm3 4.0-5.8 HEMOGLOBIN (test code=HGB) 13.3 gram/dL 13.0-17.5 HEMATOCRIT (test code=HCT) 43.3 % 42.0-52.0 MEAN CELL VOLUME (test code=MCV) 107.7 fL 80-98 MEAN CELL HGB (test code=MCH) 33.1 picogram 27.0-33.0 MEAN CELL HGB CONCETRATION (test code=MCHC) 30.7 gram/dL 33.0-36.0 RED CELL DISTRIBUTION WIDTH (test code=RDW) 13.9 % 11.6-16.2 RED CELL DISTRIBUTION WIDTH SD (test code=RDW-SD) 56.2 fL 37.0-51.0 PLATELET COUNT (test code=PLT) 74 K/mm3 150-450 MEAN PLATELET VOLUME (test code=MPV) 11.1 fL 6.7-11.0 NEUTROPHIL % (test code=NT%) 53.3 % 39.0-69.0 IMMATURE GRANULOCYTE % (test code=IG%) 0.2 % 0.0-5.0 LYMPHOCYTE % (test code=LY%) 42.5 % 25.0-55.0 MONOCYTE % (test code=MO%) 3.6 % 0.0-10.0 EOSINOPHIL % (test code=EO%) 0.2 % 0.0-5.0 BASOPHIL % (test code=BA%) 0.2 % 0.0-1.0 NUCLEATED RBC % (test code=NRBC%) 0.0 % 0-0 NEUTROPHIL # (test code=NT#) 5.21 K/mm3 1.8-7.7 IMMATURE GRANULOCYTE # (test code=IG#) 0.02 x10 3/uL 0-0.03 LYMPHOCYTE # (test code=LY#) 4.15 K/mm3 1.0-5.0 MONOCYTE # (test code=MO#) 0.35 K/mm3 0-0.8 EOSINOPHIL # (test code=EO#) 0.02 K/mm3 0.0-0.5 BASOPHIL # (test code=BA#) 0.02 K/mm3 0.0-0.2 NUCLEATED RBC # (test code=NRBC#) 0.00 K/mm3 0.0-0.1 MANUAL DIFF REQUIRED (test code=MDIFF) NO, ONLY SCAN NEEDED DIFFERENTIAL [id number] 18:25:00* Test Item Value Reference Range Comments STAIN ACCEPTABILITY (test code=STN ACCEPTABLE) STAIN ACCEPTABLE POIKILOCYTOSIS (test code=POIK) 3+ ANISOCYTOSIS (test code=ANISO) 2+ MACROCYTOSIS (test code=MACR) 2+ PLATELET ESTIMATE (test code=PLTEST) DECREASED PLATELET MORPHOLOGY (test code=PLTMORPH) NORMAL - CT CHEST W/O [id number] 18:25:00 Name: CAROL OLMEDO [facility] : 1965 Age/S: 53 / M [address] Unit #: [id number] Loc: [place] [address] Phys: Rosenda Torres MD Acct: [id number] Dis Date: Status: ADM IN PHONE #: [phone] Exam Date: 03/27/2019 181 FAX #: [phone] Reason: RESPIRATORY FAILURE EXAMS: CPT CODE: [id number] CT CHEST W/O CONTRAST 43905 REASON FOR EXAM: RESPIRATORY FAILURE EXAM ORDER DATE: 03/27/2019 6:02 PM Ordering Ananth.: Rosenda Torres MD PROCEDURE: - CT CHEST W/O CONTRAST FINDINGS: CT images of the chest were obtained without IV contrast. Reconstructed sagittal and coronal images of the chest were provided for interpretation. Dose modulation, iterative reconstruction, and/or weight based adjustment of the MA/KV was utilized to reduce the radiation dose to as low as reasonably achievable. The heart size is minimally enlarged. No evidence of pericardial effusion. Patient is intubated with the tip of the ET tube 2 cm above the rafael. A right IJ triple-lumen central line tip is in the SVC. The thoracic aorta is aorta is unremarkab le. No evidence of mediastinal or hilar adenopathy. IMPRESSION: Minimal cardiomegaly. Patchy airspace consolidation sugg estive of pulmonary edema with atelectasis of the bases and small bilate ral pleural effusions. No evidence of CO2 embolus in the pulmonary vess els at 1825 Reported and signed by: Macario Cox M.D. CC: Rosenda Bloom MD; Carol Tijerina MD; Aristides Preciado III, MD Technologist:Amy Al); JAYRO Ta CTDI: DLP: Trnscb Date/Time: 03/27/2019 (1824) Marni REYNOSO Orig Print D/T: S: 03/27/2019 (1828) CTDI: DLP: PAGE 1 Signed Report - CT HEAD/BRAIN W/O [id number] 18:17:00 Name: CAROL OLMEDO [facility] : 1965 Age/S: 53 / M [address] Unit #: [id number] Loc: [place] [address] Phys: Rogelio Armenta MD Acct: [id number] Dis Date: Status: ADM IN PHONE #: [phone] Exam Date: 03/27/2019 1815 FAX #: [phone] Reason: seizure postop EXAMS: CPT CODE: [id number] CT HEAD/BRAIN W/O CONT [id number] REASON FOR EXAM: seizure postop EXAM ORDER DATE: 03/27/2019 5:47 PM Ordering M.Saniya: Rogelio Armenta MD PROCEDURE: - CT HEAD/BRAIN W/O CONT COMPARISON: FINDINGS: CT images of the brain were obtained without IV contrast. Dose modulation, iterative reconstruction, and/or weight based adjustment of the MA/KV was utilized to reduce the radiation dose to as low as reasonably achievable. The brain parenchyma is within normal limits. The infante-white matter delineation is unremarkable. The ventricles, cisterns, and sulci are unremarkable. There is no evidence of hemorrhage, mass, mass effect. There is no evidence of acute or old infarct. The calvarium is intact. IMPRESSION: Unremarkable brain. at 1817 Reported and signed by: Macario Cox M.D. CC: Carol Tijerina MD; Rogelio Armenta MD; Aristides Preciado III, MD Technologist:Amy MAO(R); JAYRO Ta CTDI: DLP: Trnscb Date/Time: 03/27/2019 (1816) [email or web address] Orig Print D/T: S: 03/28/2019 (0845) CTDI: DLP: PAGE 1 Signed Report ARTERIAL BLOOD [id number] 18:12:00* Test Item Value Reference Range Comments ARTERIAL BLOOD GAS PH (test code=PHA) 7.05 7.35-7.45 Results called to and read back by DR Zimmerman 18:00 - 03/27/2019; by BRITNEY ARTERIAL BLOOD GAS PCO2 (test code=PCO2A) 42.7 mm Hg 35-45 ARTERIAL BLOOD GAS PO2 (test code=PO2A) 462.8 mmHg 80-100 BICARBONATE TOTAL HCO3 (test code=HCO3) 11.6 mmol/L 23.0-27.0 BASE EXCESS (test code=BLAKE) -18.4 mmol/L -3.0-5.0 Results called to and read back by DR Zimmerman 18:00 - 03/27/2019; by BRITNEY PALACIOS O2 SATURATION (test code=SATA) 99.5 % 90.0-98.0 ABG TYPE (test code=TYPEA) Arterial FIO2 (test code=FIO2A) 100.0 ABG SITE (test code=SITEA) Rt BRACHIAL ARTERY SODIUM (test code=NA/ABG) 139.1 mEq/L 135-148 POTASSIUM (test code=K/ABG) 4.7 mEq/L 3.5-4.5 CHLORIDE (test code=CL/ABG) 112 mEq/L 98-106 GLUCOSE (test code=GLU/ABG) 134 mg/dL 74-99 HEMATOCRIT (test code=HCT/ABG) 41 % 42-52 IONIZED CALCIUM (test code=CAIABG) 1.18 mmol/L 1.1-1.37 TOTAL HGB (test code=THB) 14.1 gram/dL 13.0-17.5 HGB O2 SAT (test code=HBOSAT) 97.7 % 94.00-98.00 CARBOXYHEMOGLOBIN (test code=HOHGBT) 1.0 %totalHg 0.5-1.5 METHEMOGLOBIN (test code=METHGB) 0.8 % 0.0-1.50 O2 CONTENT (test code=O2CT) 20.6 % vol 18.0-22.0 [id number] 18:09:00* Test Item Value Reference Range Comments TROPONIN-I (test code=TROPI) 1.720 ng/mL 0-0.045 Results called to [id number] by KALI 03/27/19 1809Critical results verified and read back by Nurse? Y BASIC METABOLIC [id number] 18:04:00* Test Item Value Reference Range Comments SODIUM (test code=NA) 146 mmol/L 136-145 POTASSIUM (test code=K) 4.6 mmol/L 3.5-5.1 CHLORIDE (test code=CL) 118.0 mmol/L 98-107 CARBON DIOXIDE (test code=CO2) 15.0 mmol/L 21-32 ANION GAP (test code=GAP) 17.6 10-20 GLUCOSE (test code=GLU) 133 mg/dL 74-106 BLOOD UREA NITROGEN (test code=BUN) 13 mg/dL 7-18 GLOMERULAR FILTRATION RATE (test code=GFR) > 60 mL/min >=60 Estimated GFR by using Modified MDRD formula.Chronic kidney disease is defined as either kidney damageor GFR <60 mL/min/1.73 m2 for >3 months. CREATININE (test code=CREAT) 0.90 mg/dL 0.7-1.3 BUN/CREATININE RATIO (test code=BUN/CREA) 14.4 10-20 CALCIUM (test code=CA) 7.9 mg/dL 8.5-10.1 [id number] 18:04:00* Test Item Value Reference Range Comments PHOSPHORUS (test code=PHOS) 3.8 mg/dL 2.5-4.9 [id number] 18:04:00* Test Item Value Reference Range Comments MAGNESIUM (test code=MAG) 2.0 mg/dL 1.8-2.4 THROMBOPLASTIN TIME [id number] 17:58:00* Test Item Value Reference Range Comments THROMBOPLASTIN TIME PARTIAL (test code=PTT) 43.3 seconds 25.0-36.5 IS PATIENT ON ANTICOAGULANTS? N- XR CHEST 1 [id number] 17:58:00 FAX: Carol Estes MD [phone] [place]: St: ADM FAX: Eva Cerda [phone] FAX: Aristides Ingram III --------- Name: CAROL OLMEDO [facility] : 1965 Age/S: 53/M [address] Un it #: [id number] Loc: V.S06 [place], [place] [address] Phys: Eva Johnson MD Acct: [id number] Dis Date: Status: ADM IN ONE #: [phone] Exam Date: 03/27/2019 1748 FAX #: [phone] Reason: S/P INTUBATION EXAMS: CPT CODE: [id number] XR CHEST 1 V [id number] REASON FOR EXAM: S/P INTUBATION EXAM ORDER DATE: 03/27/2019 5:31 PM Ordering Yadi: Eva Johnson MD PROCEDURE: - XR CH EST 1 V COMPARISON: 03/27/2019 at 4:04 PM FINDINGS: P ortable AP frontal view of the chest obtained at 5:48 PM shows clear lungs without evidence of consolidation. There is no evidence of effusion. The heart size is within normal limits. Pulmonary vasculatures are unremarkabl e. Stable appearance of a right IJ central line. IMPRESS ION: Patchy atelectasis of the right upper lobe. The ET tube is not see n due to portion of the upper chest and lower cervical region were exclu ded from the radiograph Electronically Signed by Yadi Cox on 11/2018 at 1755 Reported and signed by: Macario Cox M.D. CC: Carol Tijerina MD; Eva Johnson MD; Aristides Preciado III, MD Techn ologist: Josesito MAO(R) Trnscrd Date/Kraig e/By: 03/27/2019 (2280) : By: Devon Orig Print D/T: S: 03/27/2019 (1810) PAGE 1 Signed Report CBC W/AUTO [id number] 17:53:00* Test Item Value Reference Range Comments WHITE BLOOD CELL (test code=WBC) 9.8 K/mm3 4.5-12.5 RED BLOOD CELL (test code=RBC) 4.02 mill/mm3 4.0-5.8 HEMOGLOBIN (test code=HGB) 13.3 gram/dL 13.0-17.5 HEMATOCRIT (test code=HCT) 43.3 % 42.0-52.0 MEAN CELL VOLUME (test code=MCV) 107.7 fL 80-98 MEAN CELL HGB (test code=MCH) 33.1 picogram 27.0-33.0 MEAN CELL HGB CONCETRATION (test code=MCHC) 30.7 gram/dL 33.0-36.0 RED CELL DISTRIBUTION WIDTH (test code=RDW) 13.9 % 11.6-16.2 RED CELL DISTRIBUTION WIDTH SD (test code=RDW-SD) 56.2 fL 37.0-51.0 PLATELET COUNT (test code=PLT) 74 K/mm3 150-450 MEAN PLATELET VOLUME (test code=MPV) 11.1 fL 6.7-11.0 NEUTROPHIL % (test code=NT%) 53.3 % 39.0-69.0 IMMATURE GRANULOCYTE % (test code=IG%) 0.2 % 0.0-5.0 LYMPHOCYTE % (test code=LY%) 42.5 % 25.0-55.0 MONOCYTE % (test code=MO%) 3.6 % 0.0-10.0 EOSINOPHIL % (test code=EO%) 0.2 % 0.0-5.0 BASOPHIL % (test code=BA%) 0.2 % 0.0-1.0 NUCLEATED RBC % (test code=NRBC%) 0.0 % 0-0 NEUTROPHIL # (test code=NT#) 5.21 K/mm3 1.8-7.7 IMMATURE GRANULOCYTE # (test code=IG#) 0.02 x10 3/uL 0-0.03 LYMPHOCYTE # (test code=LY#) 4.15 K/mm3 1.0-5.0 MONOCYTE # (test code=MO#) 0.35 K/mm3 0-0.8 EOSINOPHIL # (test code=EO#) 0.02 K/mm3 0.0-0.5 BASOPHIL # (test code=BA#) 0.02 K/mm3 0.0-0.2 NUCLEATED RBC # (test code=NRBC#) 0.00 K/mm3 0.0-0.1 MANUAL DIFF REQUIRED (test code=MDIFF) NO, ONLY SCAN NEEDED DIFFERENTIAL [id number] 17:53:00* Test Item Value Reference Range Comments STAIN ACCEPTABILITY (test code=STN ACCEPTABLE) CABOT RINGS (test code=CAB) MORPHOLOGY COMMENT (test code=MOC) PLATELET ESTIMATE (test code=PLTEST) PLATELET MORPHOLOGY (test code=PLTMORPH) CBC W/AUTO [id number] 17:53:00* Test Item Value Reference Range Comments WHITE BLOOD CELL (test code=WBC) 9.8 K/mm3 4.5-12.5 RED BLOOD CELL (test code=RBC) 4.02 mill/mm3 4.0-5.8 HEMOGLOBIN (test code=HGB) 13.3 gram/dL 13.0-17.5 HEMATOCRIT (test code=HCT) 43.3 % 42.0-52.0 MEAN CELL VOLUME (test code=MCV) 107.7 fL 80-98 MEAN CELL HGB (test code=MCH) 33.1 picogram 27.0-33.0 MEAN CELL HGB CONCETRATION (test code=MCHC) 30.7 gram/dL 33.0-36.0 RED CELL DISTRIBUTION WIDTH (test code=RDW) 13.9 % 11.6-16.2 RED CELL DISTRIBUTION WIDTH SD (test code=RDW-SD) 56.2 fL 37.0-51.0 PLATELET COUNT (test code=PLT) 74 K/mm3 150-450 MEAN PLATELET VOLUME (test code=MPV) 11.1 fL 6.7-11.0 NEUTROPHIL % (test code=NT%) 53.3 % 39.0-69.0 IMMATURE GRANULOCYTE % (test code=IG%) 0.2 % 0.0-5.0 LYMPHOCYTE % (test code=LY%) 42.5 % 25.0-55.0 MONOCYTE % (test code=MO%) 3.6 % 0.0-10.0 EOSINOPHIL % (test code=EO%) 0.2 % 0.0-5.0 BASOPHIL % (test code=BA%) 0.2 % 0.0-1.0 NUCLEATED RBC % (test code=NRBC%) 0.0 % 0-0 NEUTROPHIL # (test code=NT#) 5.21 K/mm3 1.8-7.7 IMMATURE GRANULOCYTE # (test code=IG#) 0.02 x10 3/uL 0-0.03 LYMPHOCYTE # (test code=LY#) 4.15 K/mm3 1.0-5.0 MONOCYTE # (test code=MO#) 0.35 K/mm3 0-0.8 EOSINOPHIL # (test code=EO#) 0.02 K/mm3 0.0-0.5 BASOPHIL # (test code=BA#) 0.02 K/mm3 0.0-0.2 NUCLEATED RBC # (test code=NRBC#) 0.00 K/mm3 0.0-0.1 MANUAL DIFF REQUIRED (test code=MDIFF) NO, ONLY SCAN NEEDED DIFFERENTIAL [id number] 17:53:00* Test Item Value Reference Range Comments STAIN ACCEPTABILITY (test code=STN ACCEPTABLE) MORPHOLOGY COMMENT (test code=MOC) PLATELET ESTIMATE (test code=PLTEST) PLATELET MORPHOLOGY (test code=PLTMORPH) CBC W/AUTO [id number] 17:53:00* Test Item Value Reference Range Comments WHITE BLOOD CELL (test code=WBC) 9.8 K/mm3 4.5-12.5 RED BLOOD CELL (test code=RBC) 4.02 mill/mm3 4.0-5.8 HEMOGLOBIN (test code=HGB) 13.3 gram/dL 13.0-17.5 HEMATOCRIT (test code=HCT) 43.3 % 42.0-52.0 MEAN CELL VOLUME (test code=MCV) 107.7 fL 80-98 MEAN CELL HGB (test code=MCH) 33.1 picogram 27.0-33.0 MEAN CELL HGB CONCETRATION (test code=MCHC) 30.7 gram/dL 33.0-36.0 RED CELL DISTRIBUTION WIDTH (test code=RDW) 13.9 % 11.6-16.2 RED CELL DISTRIBUTION WIDTH SD (test code=RDW-SD) 56.2 fL 37.0-51.0 PLATELET COUNT (test code=PLT) 74 K/mm3 150-450 MEAN PLATELET VOLUME (test code=MPV) 11.1 fL 6.7-11.0 NEUTROPHIL % (test code=NT%) 53.3 % 39.0-69.0 IMMATURE GRANULOCYTE % (test code=IG%) 0.2 % 0.0-5.0 LYMPHOCYTE % (test code=LY%) 42.5 % 25.0-55.0 MONOCYTE % (test code=MO%) 3.6 % 0.0-10.0 EOSINOPHIL % (test code=EO%) 0.2 % 0.0-5.0 BASOPHIL % (test code=BA%) 0.2 % 0.0-1.0 NUCLEATED RBC % (test code=NRBC%) 0.0 % 0-0 NEUTROPHIL # (test code=NT#) 5.21 K/mm3 1.8-7.7 IMMATURE GRANULOCYTE # (test code=IG#) 0.02 x10 3/uL 0-0.03 LYMPHOCYTE # (test code=LY#) 4.15 K/mm3 1.0-5.0 MONOCYTE # (test code=MO#) 0.35 K/mm3 0-0.8 EOSINOPHIL # (test code=EO#) 0.02 K/mm3 0.0-0.5 BASOPHIL # (test code=BA#) 0.02 K/mm3 0.0-0.2 NUCLEATED RBC # (test code=NRBC#) 0.00 K/mm3 0.0-0.1 MANUAL DIFF REQUIRED (test code=MDIFF) NO, ONLY SCAN NEEDED DIFFERENTIAL [id number] 17:53:00* Test Item Value Reference Range Comments STAIN ACCEPTABILITY (test code=STN ACCEPTABLE) MORPHOLOGY COMMENT (test code=MOC) PLATELET ESTIMATE (test code=PLTEST) PLATELET MORPHOLOGY (test code=PLTMORPH) CBC W/AUTO [id number] 17:52:00* Test Item Value Reference Range Comments WHITE BLOOD CELL (test code=WBC) 9.8 K/mm3 4.5-12.5 RED BLOOD CELL (test code=RBC) 4.02 mill/mm3 4.0-5.8 HEMOGLOBIN (test code=HGB) 13.3 gram/dL 13.0-17.5 HEMATOCRIT (test code=HCT) 43.3 % 42.0-52.0 MEAN CELL VOLUME (test code=MCV) 107.7 fL 80-98 MEAN CELL HGB (test code=MCH) 33.1 picogram 27.0-33.0 MEAN CELL HGB CONCETRATION (test code=MCHC) 30.7 gram/dL 33.0-36.0 RED CELL DISTRIBUTION WIDTH (test code=RDW) 13.9 % 11.6-16.2 RED CELL DISTRIBUTION WIDTH SD (test code=RDW-SD) 56.2 fL 37.0-51.0 PLATELET COUNT (test code=PLT) 74 K/mm3 150-450 MEAN PLATELET VOLUME (test code=MPV) 11.1 fL 6.7-11.0 NEUTROPHIL % (test code=NT%) 53.3 % 39.0-69.0 IMMATURE GRANULOCYTE % (test code=IG%) 0.2 % 0.0-5.0 LYMPHOCYTE % (test code=LY%) 42.5 % 25.0-55.0 MONOCYTE % (test code=MO%) 3.6 % 0.0-10.0 EOSINOPHIL % (test code=EO%) 0.2 % 0.0-5.0 BASOPHIL % (test code=BA%) 0.2 % 0.0-1.0 NUCLEATED RBC % (test code=NRBC%) 0.0 % 0-0 NEUTROPHIL # (test code=NT#) 5.21 K/mm3 1.8-7.7 IMMATURE GRANULOCYTE # (test code=IG#) 0.02 x10 3/uL 0-0.03 LYMPHOCYTE # (test code=LY#) 4.15 K/mm3 1.0-5.0 MONOCYTE # (test code=MO#) 0.35 K/mm3 0-0.8 EOSINOPHIL # (test code=EO#) 0.02 K/mm3 0.0-0.5 BASOPHIL # (test code=BA#) 0.02 K/mm3 0.0-0.2 NUCLEATED RBC # (test code=NRBC#) 0.00 K/mm3 0.0-0.1 MANUAL DIFF REQUIRED (test code=MDIFF) NO, ONLY SCAN NEEDED DIFFERENTIAL [id number] 17:52:00* Test Item Value Reference Range Comments STAIN ACCEPTABILITY (test code=STN ACCEPTABLE) CABOT RINGS (test code=CAB) MORPHOLOGY COMMENT (test code=MOC) PLATELET ESTIMATE (test code=PLTEST) PLATELET MORPHOLOGY (test code=PLTMORPH) - XR CHEST 1 [id number] 16:39:00 FAX: Gregorio Richards DO [phone] [place]: B St: REG FAX: Carol Estes MD [phone] FAX: Aristides Ingram III [phone] Name: CAROL OLMEDO [facility] : 1965 Age/S: 53/M Romina Grubbs Unit #: [id number] [facility] [address] Phys: Gregorio De Oliveira DO Acct: [id number] Dis Date: Status: REG SD PH ONE #: [phone] Exam Date: 03/27/2019 1620 FAX #: [phone] Reason: stat CVL insertion in OR EXAMS: CPT CODE: [id number] XR CHEST 1 V [id number] REASON FOR EXAM: stat CVL insertion in OR EXAM ORDER DATE: 03/27/2019 3:55 PM Ordering MJoyce: Gregorio De Oliveira DO PROCEDURE: - XR CHEST 1 V COMPARISON: FINDINGS: Portable AP fro ntal view of the chest obtained at 4:04 PM shows patchy airspace opacities . There is no evidence of effusion. The heart size is within normal limits . Pulmonary vasculatures are minimally congested. IMPRESS ION: Newly placed right IJ triple-lumen central line tip is in the SVC at 1639 Reported and signed by: Macario Cox M.D. CC: Gregorio Junior DO; Carol Tijerina MD; Aristides Preciado III, MD Technologist: LAZ KingstonR Trnscrd Date/Time/By: 03/27/2019 (4485) : By: SterlingVTL Orig Print D/T: S: 03/27/2019 ([id number]) PAGE 1 Signed Report [id number] 12:20:00* Test Item Value Reference Range Comments GLUBED (test code=GLUBED) 88 mg/dL 74-106 Performed by certified metal cnc operator at [facility] (Former[facility]) HEPATIC FUNCTION [id number] 17:45:00* Test Item Value Reference Range Comments TOTAL PROTEIN (test code=PROT) 6.4 gram/dL 6.4-8.2 ALBUMIN (test code=ALB) 3.3 g/dL 3.4-5.0 GLOBULIN (test code=GLOB) 3.1 gram/dL 2.7-4.2 ALBUMIN/GLOBULIN RATIO (test code=A/G) 1.1 0.75-1.50 BILIRUBIN TOTAL (test code=BILT) 1.10 mg/dL 0.0-1.0 BILIRUBIN DIRECT (test code=BILD) 0.33 mg/dL 0.0-0.20 SGOT/AST (test code=AST) 31 IUnit/L 15-37 SGPT/ALT (test code=ALT) 41 IUnit/L 12-78 ALKALINE PHOSPHATASE TOTAL (test code=ALKP) 106 IUnit/L 45-117 Note change in reference range due to change in reagent. PROTHROMBIN [id number] 17:40:00* Test Item Value Reference Range Comments PROTHROMBIN TIME PATIENT (test code=PTP) 14.3 seconds 9.0-14.0 INTERNATIONAL NORMAL RATIO (test code=INR) 1.2 0.8-1.2 The therapeutic range for oral anticoagulant therapy formost indications is an international normalized ratio (INR)of between 2.0 and 3.0. The recommended therapeutic INRrange for various clinical situations is listed below: Clinical Situation INR range Pulmonary e mbolism treatment (2.0-3.0)Venous thrombosis treatmentVenous thrombosis prophylaxis (high risk surgery)Prevention of systemic embolism from: Acute myocardial infarction Valvular heart disease Atrial fibrillation Mechanical prosthetic heart valves (2.5-3.5) IS PATIENT ON ANTICOAGULANTS? NTHROMBOPLASTIN TIME [id number] 17:40:00* Test Item Value Reference Range Comments THROMBOPLASTIN TIME PARTIAL (test code=PTT) 38.8 seconds 25.0-36.5 IS PATIENT ON ANTICOAGULANTS? NCOMPREHENSIVE METABOLIC [id number] 17:11:00 * Test Item Value Reference Range Comments SODIUM (test code=NA) 138 mmol/L 136-145 POTASSIUM (test code=K) 3.9 mmol/L 3.5-5.1 CHLORIDE (test code=CL) 110.0 mmol/L 98-107 CARBON DIOXIDE (test code=CO2) 22.0 mmol/L 21-32 ANION GAP (test code=GAP) 9.9 10-20 GLUCOSE (test code=GLU) 132 mg/dL 74-106 BLOOD UREA NITROGEN (test code=BUN) 13 mg/dL 7-18 GLOMERULAR FILTRATION RATE (test code=GFR) > 60 mL/min >=60 Estimated GFR by using Modified MDRD formula.Chronic kidney disease is defined as either kidney damageor GFR <60 mL/min/1.73 m2 for >3 months. CREATININE (test code=CREAT) 0.70 mg/dL 0.7-1.3 BUN/CREATININE RATIO (test code=BUN/CREA) 18.6 10-20 TOTAL PROTEIN (test code=PROT) 6.3 gram/dL 6.4-8.2 ALBUMIN (test code=ALB) 3.2 g/dL 3.4-5.0 GLOBULIN (test code=GLOB) 3.1 gram/dL 2.7-4.2 ALBUMIN/GLOBULIN RATIO (test code=A/G) 1.0 0.75-1.50 CALCIUM (test code=CA) 8.4 mg/dL 8.5-10.1 BILIRUBIN TOTAL (test code=BILT) 1.10 mg/dL 0.0-1.0 SGOT/AST (test code=AST) 28 IUnit/L 15-37 SGPT/ALT (test code=ALT) 41 IUnit/L 12-78 ALKALINE PHOSPHATASE TOTAL (test code=ALKP) 106 IUnit/L 45-117 Note change in reference range due to change in reagent. CBC W/AUTO [id number] 16:58:00* Test Item Value Reference Range Comments WHITE BLOOD CELL (test code=WBC) 4.5 K/mm3 4.5-12.5 RED BLOOD CELL (test code=RBC) 3.74 mill/mm3 4.0-5.8 HEMOGLOBIN (test code=HGB) 12.5 gram/dL 13.0-17.5 HEMATOCRIT (test code=HCT) 37.0 % 42.0-52.0 MEAN CELL VOLUME (test code=MCV) 98.9 fL 80-98 MEAN CELL HGB (test code=MCH) 33.4 picogram 27.0-33.0 MEAN CELL HGB CONCETRATION (test code=MCHC) 33.8 gram/dL 33.0-36.0 RED CELL DISTRIBUTION WIDTH (test code=RDW) 13.7 % 11.6-16.2 RED CELL DISTRIBUTION WIDTH SD (test code=RDW-SD) 50.2 fL 37.0-51.0 PLATELET COUNT (test code=PLT) 75 K/mm3 150-450 RESULT VERIFIED BY REPEAT ANALYSIS MEAN PLATELET VOLUME (test code=MPV) 11.4 fL 6.7-11.0 NEUTROPHIL % (test code=NT%) 39.7 % 39.0-69.0 IMMATURE GRANULOCYTE % (test code=IG%) 0.2 % 0.0-5.0 LYMPHOCYTE % (test code=LY%) 45.9 % 25.0-55.0 MONOCYTE % (test code=MO%) 11.3 % 0.0-10.0 EOSINOPHIL % (test code=EO%) 2.2 % 0.0-5.0 BASOPHIL % (test code=BA%) 0.7 % 0.0-1.0 NUCLEATED RBC % (test code=NRBC%) 0.0 % 0-0 NEUTROPHIL # (test code=NT#) 1.80 K/mm3 1.8-7.7 IMMATURE GRANULOCYTE # (test code=IG#) 0.01 x10 3/uL 0-0.03 LYMPHOCYTE # (test code=LY#) 2.08 K/mm3 1.0-5.0 MONOCYTE # (test code=MO#) 0.51 K/mm3 0-0.8 EOSINOPHIL # (test code=EO#) 0.10 K/mm3 0.0-0.5 BASOPHIL # (test code=BA#) 0.03 K/mm3 0.0-0.2 NUCLEATED RBC # (test code=NRBC#) 0.00 K/mm3 0.0-0.1
[2020-01-08 13:05] VITALS: BP 101/62
== END | disposition home or self-care (01) ==
LOC: OR 09:32
PROVIDERS: ATTEND Internal Medicine Gastroenterology
DX: K70.30 Alcoholic cirrhosis of liver without ascites (principal); D12.5 Benign neoplasm of sigmoid colon; I85.10 Secondary esophageal varices without bleeding; K21.9 Gastro-esophageal reflux disease without esophagitis; K44.9 Diaphragmatic hernia without obstruction or gangrene; K76.6 Portal hypertension; K31.89 Other diseases of stomach and duodenum; K64.8 Other hemorrhoids; K80.20 Calculus of gallbladder without cholecystitis without obstruction; G47.33 Obstructive sleep apnea (adult) (pediatric); E11.9 Type 2 diabetes mellitus without complications; D69.6 Thrombocytopenia, unspecified; I10 Essential (primary) hypertension; F17.200 Nicotine dependence, unspecified, uncomplicated; Z01.810 Encounter for preprocedural cardiovascular examination; Z01.812 Encounter for preprocedural laboratory examination
CPT/HCPCS: 36415 ×2; 43239; 45385; 80053; 82948; 85025; 85610; 85730; 88305; 88312; 93005; J2001; J2250; J2704; J3010

== ENCOUNTER → 2021-02-03 | Day surgery (SDC) | payer OTHER ==
[2021-01-29 10:40] LABS: INR 1.14; PROTHROMBIN TIME 15.4 seconds (11.9-14.5)
[2021-01-29 10:41] LABS: PARTIAL THROMBOPLASTIN TIME 33.4 seconds (23.8-35.5)
[2021-01-29 10:45] LABS: ALANINE AMINOTRANSFERASE 41 IU/L (0-55); ALBUMIN 4.3 g/dL (3.5-5.0); ALBUMIN/GLOBULIN RATIO 1.3 (0.8-2.0); ALKALINE PHOSPHATASE 87 IU/L (40-150); ANION GAP 14.3 mmol/L (8-16); BLOOD UREA NITROGEN 16 mg/dL (7-26); BUN/CREATININE RATIO 19 (6-25); CALCIUM 9.8 mg/dL (8.4-10.2); CARBON DIOXIDE 24 mmol/L (22-29); CHLORIDE 108 mmol/L (98-107); CREATININE, SERUM 0.86 mg/dL (0.72-1.25); EST GLOMERULAR FILTRATION RATE > 60 ML/MIN (60-); GLUCOSE 150 mg/dL (74-118); POTASSIUM 4.3 mmol/L (3.5-5.1); SODIUM 142 mmol/L (136-145)
[~2021-02-03] MED LIST changes: +MAGNESIUM PO
[2021-02-03 12:25] VITALS: BP 106/68
== END | disposition home or self-care (01) ==
LOC: OR 10:49
PROVIDERS: ATTEND Internal Medicine Gastroenterology
DX: K70.30 Alcoholic cirrhosis of liver without ascites (principal); K29.00 Acute gastritis without bleeding; I85.10 Secondary esophageal varices without bleeding; K29.50 Unspecified chronic gastritis without bleeding; K76.6 Portal hypertension; K31.89 Other diseases of stomach and duodenum; K21.9 Gastro-esophageal reflux disease without esophagitis; K44.9 Diaphragmatic hernia without obstruction or gangrene; C34.90 Malignant neoplasm of unspecified part of unspecified bronchus or lung; D69.6 Thrombocytopenia, unspecified; I10 Essential (primary) hypertension; R00.1 Bradycardia, unspecified; F17.200 Nicotine dependence, unspecified, uncomplicated; Z91.041 Radiographic dye allergy status; Z01.810 Encounter for preprocedural cardiovascular examination; Z01.812 Encounter for preprocedural laboratory examination; Z20.822 Contact with and (suspected) exposure to COVID-19; Z79.899 Other long term (current) drug therapy
CPT/HCPCS: 36415; 43239; 45378; 80053; 85610; 85730; 88305; 88312; 93005; J2001; J2250; J3010; U0002

== ENCOUNTER → 2021-03-12 | Day surgery (SDC) | payer OTHER ==
[2021-03-08 12:12] LABS: BASOPHILS % 0.5 % (0.0-1.0); EOSINOPHILS % 1.4 % (0.0-6.0); HEMATOCRIT 38.6 % (38.2-49.6); HEMOGLOBIN 13.2 g/dL (14.0-18.0); LYMPHOCYTES # (AUTO) 0.5 (1.0-3.2); MEAN CORPUSCULAR HEMOGLOBIN 32.4 pg (28-32); MEAN CORPUSCULAR HGB CONC 34.2 g/dL (31-35); MEAN CORPUSCULAR VOLUME 94.8 fL (81-99); MONOCYTES # (AUTO) 0.3 (0.2-0.8); NEUTROPHILS # (AUTO) 1.3 (2.1-6.9); NEUTROPHILS % 59.1 % (38.7-80.0); PLATELET COUNT 51 x10e3/uL (140-360); RED BLOOD COUNT 4.07 x10e6/uL (4.3-5.7); RED CELL DISTRIBUTION WIDTH 13.4 % (11.7-14.4)
[2021-03-08 12:34] LABS: ALANINE AMINOTRANSFERASE 34 IU/L (0-55); ALBUMIN/GLOBULIN RATIO 1.5 (0.8-2.0); ALKALINE PHOSPHATASE 81 IU/L (40-150); ANION GAP 10.8 mmol/L (8-16); BLOOD UREA NITROGEN 11 mg/dL (7-26); BUN/CREATININE RATIO 14 (6-25); CALCIUM 9.1 mg/dL (8.4-10.2); CARBON DIOXIDE 23 mmol/L (22-29); CHLORIDE 110 mmol/L (98-107); CREATININE, SERUM 0.81 mg/dL (0.72-1.25); EST GLOMERULAR FILTRATION RATE > 60 ML/MIN (60-); GLUCOSE 87 mg/dL (74-118); POTASSIUM 3.8 mmol/L (3.5-5.1); SODIUM 140 mmol/L (136-145)
[~2021-03-12] VITALS: Ht 170.2 cm; Wt 63.5 kg
[~2021-03-12] MED LIST changes: +ALPRAZOLAM 0.5 MG TAB ONE; +BITTER MELON PO; +DIPHENHYDRAMINE HCL 25 MG CAP ONE; +FAMOTIDINE 20 MG/2 ML VIAL IV ONE; +GINKGO BILOBA120 MG PO; +HEPARIN SOD/SOD CHLORIDE 2,000 ML ONE; +IOPAMIDOL 370 MG/ML 200 ML INFUS..BTL INJ ONE; +LIDOCAINE HCL 2% LOCAL 20 ML VIAL ONE; -LIDOCAINE HCL 2% LOCAL INJ 5 ML SDV VIAL INJ ONE; +MAGNESIUM OXID400 MG PO; +METHYLPREDNISOLONE SOD SUCC 125 MG/2ML VIAL ONE; +MILK THISTLE175 M2 PO; +POTASSIUM PO; -PROPOFOL IV EMULSION 10 MG/ML 20 ML VIAL ONE; +SODIUM CHLORIDE 0.9% 1000ML 1,000 ML ONE; +VITAMIN D325 MCG PO
[2021-03-12 16:45] VITALS: BP 94/55
[2021-03-12 17:00] VITALS: BP 99/57
[2021-03-12 17:15] VITALS: BP 90/57
[2021-03-12 17:30] VITALS: BP 97/59
[2021-03-12 17:45] VITALS: BP 105/62
[2021-03-12 18:00] VITALS: BP 114/69
== END | disposition home or self-care (01) ==
LOC: CATH LAB 02:22
PROVIDERS: ATTEND Internal Medicine Interventional Cardiology
DX: I25.119 Atherosclerotic heart disease of native coronary artery with unspecified angina pectoris (principal); R94.39 Abnormal result of other cardiovascular function study; Z91.041 Radiographic dye allergy status; Z01.812 Encounter for preprocedural laboratory examination; Z20.822 Contact with and (suspected) exposure to COVID-19; Z87.891 Personal history of nicotine dependence
CPT/HCPCS: 36415; 76937; 80053; 83880; 85025; 93454; 99152; C1887; J2001; J2250; J2930; J3010; J7030; Q9967; U0002

== ENCOUNTER → 2022-01-19 | Day surgery (SDC) | payer OTHER ==
[2022-01-14 11:58] LABS: BASOPHILS % 0.7 % (0.0-1.0); EOSINOPHILS # (AUTO) 0.1 (0.0-0.4); EOSINOPHILS % 1.7 % (0.0-6.0); HEMATOCRIT 42.5 % (38.2-49.6); HEMOGLOBIN 14.3 g/dL (14.0-18.0); LYMPHOCYTES # (AUTO) 0.8 (1.0-3.2); LYMPHOCYTES % 27.2 % (18.0-39.1); MEAN CORPUSCULAR HEMOGLOBIN 32.1 pg (28-32); MEAN CORPUSCULAR HGB CONC 33.6 g/dL (31-35); MEAN CORPUSCULAR VOLUME 95.3 fL (81-99); MONOCYTES # (AUTO) 0.4 (0.2-0.8); MONOCYTES % 12.3 % (4.4-11.3); NEUTROPHILS # (AUTO) 1.8 (2.1-6.9); NEUTROPHILS % 58.1 % (38.7-80.0); PLATELET COUNT 73 x10e3/uL (140-360); RED BLOOD COUNT 4.46 x10e6/uL (4.3-5.7); RED CELL DISTRIBUTION WIDTH 13.9 % (11.7-14.4)
[2022-01-14 12:10] LABS: INR 1.07; PROTHROMBIN TIME 14.7 seconds (11.9-14.5)
[2022-01-14 12:11] LABS: PARTIAL THROMBOPLASTIN TIME 33.3 seconds (23.8-35.5)
[2022-01-14 12:20] LABS: ALBUMIN 3.9 g/dL (3.5-5.0); ALBUMIN/GLOBULIN RATIO 1.4 (0.8-2.0); ANION GAP 12.3 mmol/L (8-16); CALCIUM 9.2 mg/dL (8.4-10.2); CREATININE, SERUM 0.75 mg/dL (0.72-1.25); POTASSIUM 4.3 mmol/L (3.5-5.1)
[~2022-01-19] MED LIST changes: -ALPRAZOLAM 0.5 MG TAB ONE; -DIPHENHYDRAMINE HCL 25 MG CAP ONE; -FAMOTIDINE 20 MG/2 ML VIAL IV ONE; -FENTANYL CITRATE/PF 100MCG/2 ML INJ ONE; +HEPARIN 500 UNITS/5ML MDV INJ ONE; -HEPARIN SOD/SOD CHLORIDE 2,000 ML ONE; -IOPAMIDOL 370 MG/ML 200 ML INFUS..BTL INJ ONE; -LIDOCAINE HCL 2% LOCAL 20 ML VIAL ONE; -METHYLPREDNISOLONE SOD SUCC 125 MG/2ML VIAL ONE; -MIDAZOLAM HCL 2 MG/2 ML VIAL ONE; +POVIDONE IODINE 0.05% 0.05 % ML PO ONE; +PROPOFOL IV EMULSION 10 MG/ML 20 ML VIAL ONE; +SIMETHICONE 40 MG/0.6 ML BTL ONE; -SODIUM CHLORIDE 0.9% 1000ML 1,000 ML ONE; +VIT C PO
[2022-01-19 11:40] VITALS: BP 103/64
== END | disposition home or self-care (01) ==
LOC: OR 08:49
PROVIDERS: ATTEND Internal Medicine Gastroenterology
DX: K70.30 Alcoholic cirrhosis of liver without ascites (principal); I85.10 Secondary esophageal varices without bleeding; K29.50 Unspecified chronic gastritis without bleeding; K44.9 Diaphragmatic hernia without obstruction or gangrene; K76.6 Portal hypertension; K31.89 Other diseases of stomach and duodenum; G47.33 Obstructive sleep apnea (adult) (pediatric); D69.6 Thrombocytopenia, unspecified; Z01.810 Encounter for preprocedural cardiovascular examination; Z01.812 Encounter for preprocedural laboratory examination; Z20.822 Contact with and (suspected) exposure to COVID-19; Z68.21 Body mass index [BMI] 21.0-21.9, adult; Z87.891 Personal history of nicotine dependence
CPT/HCPCS: 36415; 43239; 80053; 85025; 85610; 85730; 88305; 88312; 93005; U0002

== ENCOUNTER → 2022-09-09 | Outpatient (CLI) | payer OTHER ==
[~2022-09-09] MED LIST changes: -HEPARIN 500 UNITS/5ML MDV INJ ONE; -POVIDONE IODINE 0.05% 0.05 % ML PO ONE; -PROPOFOL IV EMULSION 10 MG/ML 20 ML VIAL ONE; -SIMETHICONE 40 MG/0.6 ML BTL ONE
== END ==
LOC: US 07:30
PROVIDERS: ATTEND Internal Medicine Gastroenterology
DX: K70.30 Alcoholic cirrhosis of liver without ascites (principal); K44.9 Diaphragmatic hernia without obstruction or gangrene; D69.6 Thrombocytopenia, unspecified; D12.6 Benign neoplasm of colon, unspecified; I85.00 Esophageal varices without bleeding; K29.00 Acute gastritis without bleeding
CPT/HCPCS: 76700

== ENCOUNTER → 2023-05-10 | Day surgery (SDC) | payer MEDICARE, OTHER ==
[2023-05-05 09:50] LABS: BASOPHILS % 0.3 % (0.0-1.0); EOSINOPHILS % 0.7 % (0.0-6.0); HEMOGLOBIN 13.8 g/dL (14.0-18.0); LYMPHOCYTES # (AUTO) 0.6 (1.0-3.2); LYMPHOCYTES % 21.9 % (18.0-39.1); MEAN CORPUSCULAR HEMOGLOBIN 31.4 pg (28-32); MEAN CORPUSCULAR HGB CONC 33.7 g/dL (31-35); MEAN CORPUSCULAR VOLUME 93.2 fL (81-99); MONOCYTES # (AUTO) 0.3 (0.2-0.8); MONOCYTES % 9.6 % (4.4-11.3); NEUTROPHILS % 67.2 % (38.7-80.0); PLATELET COUNT 74 x10e3/uL (140-360); RED CELL DISTRIBUTION WIDTH 13.2 % (11.7-14.4)
[2023-05-05 10:11] LABS: INR 1.09; PROTHROMBIN TIME 14.6 seconds (11.9-14.5)
[2023-05-05 10:12] LABS: PARTIAL THROMBOPLASTIN TIME 34.2 seconds (23.8-35.5)
[2023-05-05 10:18] LABS: ALBUMIN 3.9 g/dL (3.5-5.0); ALBUMIN/GLOBULIN RATIO 1.4 (0.8-2.0); ANION GAP 12.2 mmol/L (8-16); CALCIUM 9.2 mg/dL (8.4-10.2); CREATININE, SERUM 0.84 mg/dL (0.72-1.25); POTASSIUM 4.2 mmol/L (3.5-5.1)
[~2023-05-10] MED LIST changes: +ARTICHOKE EXTRACT PO; +FIBER500 MG PO; +FOLIC ACID0.4 MG PO; +HEPARIN 500 UNITS/5ML MDV INJ ONE; +LACTATED RINGER'S 1,000 ML ONE; +LIDOCAINE HCL 2% LOCAL INJ 5 ML SDV VIAL INJ ONE; +MEN'S 50 PLUS1 EACH PO; +POVIDONE IODINE 0.05% 0.05 % ML PO ONE; +PROPOFOL IV EMULSION 10 MG/ML 20 ML VIAL ONE; +VITAMIN B-121000 MCG PO; +ZINC CHELATED50 M2 PO
[2023-05-10 12:00] VITALS: BP 106/63; PULSE 53; RESP 14; O2SAT 100
== END | disposition home or self-care (01) ==
LOC: OR 10:07
PROVIDERS: ATTEND Internal Medicine Gastroenterology
DX: K44.9 Diaphragmatic hernia without obstruction or gangrene (principal); K29.00 Acute gastritis without bleeding; K74.60 Unspecified cirrhosis of liver; I85.10 Secondary esophageal varices without bleeding; Z86.010 Personal history of colon polyps; D69.6 Thrombocytopenia, unspecified; R16.1 Splenomegaly, not elsewhere classified; G47.33 Obstructive sleep apnea (adult) (pediatric); J44.9 Chronic obstructive pulmonary disease, unspecified; J45.909 Unspecified asthma, uncomplicated; Z01.810 Encounter for preprocedural cardiovascular examination; Z01.812 Encounter for preprocedural laboratory examination; Z79.899 Other long term (current) drug therapy; Z85.118 Personal history of other malignant neoplasm of bronchus and lung; Z92.3 Personal history of irradiation; Z87.891 Personal history of nicotine dependence
CPT/HCPCS: 36415; 43239; 80053; 85025; 85610; 85730; 88305; 88342; 93005; J2001; J2704; J7121